=== PATIENT | female | born 1940 | race Caucasian/White ===

== ENCOUNTER → 2016-11-01 | Outpatient (CLI) | payer OTHER ==
--- NOTE | 2016-11-01 18:10 | DX ---
Thoracic spine, three views History: Pain radiating down thoracic spine into right leg, M79.604 Findings: Alignment is anatomic. Disk spaces are well maintained. No compression fracture is identif ied. There is no paraspinal stripe widening. There is diffuse osteoporosis. Impression: 1. No compression fracture or degenerative thoracic disk disease. 2. Osteoporosis confirmed on a DEXA scan in July 2016. Is this patient undergoing therapy?
== END ==
LOC: FIMAGING 11:21
PROVIDERS: ATTEND Family Medicine
DX: M79.604 Pain in right leg (principal); M81.0 Age-related osteoporosis without current pathological fracture

== ENCOUNTER → 2016-11-06 | Outpatient (CLI) | payer OTHER | LOC: BHFA 13:30 | PROVIDERS: ATTEND Internal Medicine Cardiovascular Disease | DX: R06.02 Shortness of breath (principal) | CPT/HCPCS: 78452; 93017; A9500; J2785 ==

== ENCOUNTER → 2016-11-13 | Outpatient (CLI) | payer OTHER | LOC: BHFA 13:00 | PROVIDERS: ATTEND Internal Medicine Cardiovascular Disease | DX: I73.9 Peripheral vascular disease, unspecified (principal); I10 Essential (primary) hypertension; E78.5 Hyperlipidemia, unspecified ==

== ENCOUNTER → 2016-11-14 | Outpatient (CLI) | payer OTHER | LOC: CIMAGING 12:13 | PROVIDERS: ATTEND Family Medicine | DX: Z12.39 Encounter for other screening for malignant neoplasm of breast (principal); N63 Unspecified lump in breast | CPT/HCPCS: 76641; G0204 ==

== ENCOUNTER → 2016-11-15 | Outpatient (CLI) | payer OTHER | LOC: BHFA 13:15 | PROVIDERS: ATTEND Internal Medicine Cardiovascular Disease | DX: I10 Essential (primary) hypertension (principal) ==

== ENCOUNTER 2016-11-20 07:20 | Day surgery (SDC) | payer OTHER ==
[2016-11-20] MEDS ORDERED: FAMOTIDINE 20 MG TAB PO ONE (07:22)
[2016-11-20] MEDS ORDERED: NS 1,000 ML IV ONE (07:22)
[2016-11-20] MEDS ORDERED: DIAZEPAM 5 MG TAB PO ONE (07:22)
[2016-11-20] MEDS ORDERED: ASPIRIN EC 325 MG TAB PO ONE ×2 (07:22→07:52)
--- NOTE | 2016-11-20 07:48 | CPEKG ---
Heart Rate: 67 RR Interval: 896 P-R Interval: 140 QRSD Interval: 68 QT Interval: 396 QTC Interval: 418 P [place]: 46 QRS [place]: -8 T Wave [place]: 57 EKG Severity - ABNORMAL ECG - EKG Impression: SINUS RHYTHM EKG Impression: CONSIDER ANTEROSEPTAL INFARCT Electronically Signed By: Kavon Son 21-Nov-2016 16:56:21
[2016-11-20] MEDS ORDERED: DIAZEPAM 5 MG TAB ONE (07:52)
[2016-11-20] MEDS ORDERED: FAMOTIDINE 20 MG TAB ONE (07:52)
[2016-11-20 08:01] LABS: % IMMATURE GRANULYOCYTES 0.2 % (0.0-1.1); ABSOLUTE IMMATURE GRANULOCYTES 0.01 10^3/uL (0.00-0.10); ADD DIFF? NO; ADD MORPH? NO; ADD SCAN? NO; ATYPICAL LYMPHOCYTE FLAG 10 (0-99); FRAGMENT RBC FLAG 0 (0-99); HEMATOCRIT 42.3 % (38.0-47.0); HEMOGLOBIN 14.2 g/dL (12.6-16.3); LEFT SHIFT FLG 0 (0-99); LIPEMIA HEMOLYSIS FLAG 80 (0-99); MEAN CELL HEMOGLOBIN 30.3 pg (27.9-34.1); MEAN CELL HEMOGLOBIN CONCENTR. 33.6 g/dL (32.4-36.7); MEAN CELL VOLUME 90.2 fL (81.5-99.8); MEAN PLATELET VOLUME 10.4 fL (8.7-11.7); PLATELET CLUMPS FLAG 0 (0-99); PLATELET COUNT 209 10^3/uL (150-400); RED BLOOD CELL COUNT 4.69 10^6/uL (4.18-5.33); RED CELL DISTRIBUTION WIDTH 13.3 % (11.5-15.2)
[2016-11-20 08:16] LABS: ANION GAP 11 mEq/L (8-16); CALCIUM 9.9 mg/dL (8.5-10.4); CARBON DIOXIDE 29 mEq/l (22-31); CHLORIDE 105 mEq/L (97-110); CHOLESTEROL 186 mg/dL (140-220); CHOLESTEROL/HDL RATIO 3.72 RATIO (1.00-4.44); CREATININE 0.7 mg/dL (0.6-1.0); GLOMERULAR FILTRATION RATE > 60; GLUCOSE 76 mg/dL (70-100); HIGH DENSITY LIPOPROTEIN 50 mg/dL (40-85); LDL/HDL RATIO 2.16 RATIO (1.00-3.22); LOW DENSITY LIPOPROTEIN 108 mg/dL (80-100); NON-HIGH DENSITY LIPOPROTEIN 136 mg/dL (90-129); SODIUM 145 mEq/L (134-144); TRIGLYCERIDE 142 mg/dL (35-135); VERY LOW DENSITY LIPOPROTEINS 28 mg/dL (8-25)
[2016-11-20 08:22] LABS: INR 1.01 (0.83-1.16); PROTIME(PATIENT) 13.2 SEC (12.0-15.0)
[2016-11-20] MEDS ORDERED: IOPAMIDOL (ISOVUE-370) 150 ML BTL IV ONE ×2 (08:40→09:30)
[2016-11-20] MEDS ORDERED: LIDOCAINE 1% 30 ML SDV ONE (08:40)
[2016-11-20] MEDS ORDERED: fentaNYL 100 MCG/2 ML INJ ONE (08:41)
[2016-11-20] MEDS ORDERED: HEPARIN 10,000 UNIT/10 ML MDV ONE (08:42)
[2016-11-20] MEDS ORDERED: MIDAZOLAM 2 MG/2 ML VIAL ONE (08:42)
[2016-11-20] MEDS ORDERED: ATROPINE SULFATE 1 MG/10 ML SYR ONE (10:30)
--- NOTE | 2016-11-20 11:49 | CPIP ---
DATE OF PROCEDURE: 11/20/2016 PROCEDURES: 1. Coronary angiography. 2. Left ventriculography. 3. Abdominal aortography. 4. Right lower extremity angiography with catheter placed in the ipsilateral right common iliac art maninder. 5. Left lower extremity angiography with catheter placed in the contralateral left superficial femo ral artery. INDICATION: 1. Dyspnea on exertion concerning for an anginal equivalent. 2. Intermediate risk abnormal nuclear stress test. 3. Classic left lower extremity claudication with abnormal YOLANDA of 0.37. 4. Atypical right lower extremity pain that is currently lifestyle limiting. ACCESS: The patient was prepped and draped in sterile fashion. 1% lidocaine was used to anesthetiz e the right inguinal region. A 6-Indonesian introducer sheath was placed selectively into the right com mon femoral artery via modified Seldinger technique. CORONARY ANGIOGRAPHY: A 6-Indonesian JL4 was advanced to the left main coronary artery and images obtai jamin. The left main coronary artery trifurcated into an LAD, ramus, and circumflex coronary arteries . The left main coronary artery was long. The left main coronary artery had mild luminal regularit ies throughout. There was no stenosis greater than 10%. The left anterior descending coronary ruperto ry had a proximal 20% stenosis present. In the midvessel, a myocardial bridge could be seen. In th e distal vessel, mild luminal irregularities were present with no stenosis greater than 15%. The le ft anterior descending coronary artery gave rise to one diagonal branch. The diagonal branch was fr ee of any significant disease. The ramus coronary artery is a zchdhuec-or-wmfyg size vessel. The r amus coronary artery had a mid 20% stenosis present. The circumflex coronary artery is a moderate-s ized vessel. The circumflex coronary artery and its complement of OM branches appeared normal. A 6 -Indonesian JR4 was advanced to the right coronary artery and images obtained. The right coronary arter y is dominant. The right coronary artery appeared normal. LEFT VENTRICULOGRAPHY: A 6-Indonesian pigtail catheter was advanced in the left ventricle and images ob tained. The left ventricle is normal size, had normal systolic function. Estimated ejection fracti on was 70%. Left ventricular end-diastolic pressure was approximately 20 mmHg. ABDOMINAL AORTOGRAPHY: A 6-Indonesian pigtail catheter was placed in the abdominal aorta and position v erified by angiography. Images were obtained via power injection through the [employer] system. The ri ght renal artery was not well visualized. The left renal artery was not well visualized. The dista l abdominal aorta had mild luminal irregularities throughout with no stenosis greater than 15%. The re was no evidence of aneurysmal dilation. The distal abdominal aorta then bifurcated into the righ t and left common iliac arteries. LEFT LOWER EXTREMITY ANGIOGRAPHY VIA CONTRALATERAL APPROACH WITH CATHETER PLACED IN THE LEFT SUPERFI CIAL FEMORAL ARTERY: A SOS Omni catheter was placed in the distal abdominal aorta and position veri fied by angiography. The SOS Omni catheter was used to engage the left common iliac artery and image s obtained. The left common iliac artery bifurcated into an internal iliac artery and external clint c artery. The left common iliac artery appeared normal. The left internal iliac artery had an osti al 20% stenosis present. The left external iliac artery appeared free of any significant disease. T he SOS Omni was then exchanged for a straight flush catheter which was advanced which was advanced i nto the left external iliac artery. The left external iliac artery turned into the left common femo ral artery. The left external iliac artery appeared normal. The left common femoral artery had mil d luminal irregularities throughout. The straight flush catheter was then advanced into the left hoover perficial femoral artery and position verified by angiography. Images were obtained via hand inject ion. The left superficial femoral artery was diffusely diseased. In the proximal segment, there wa s a segmental 20% stenosis present. In the mid-segment, there is a 25% stenosis present, and in the distal segment there is a discrete 95% stenosis present prior to turning into the popliteal artery. The popliteal artery appeared free of any significant disease. Below the knee, there was 2 vessel runoff. RIGHT LOWER EXTREMITY ANGIOGRAPHY VIA IPSILATERAL APPROACH WITH CATHETER PLACED IN THE RIGHT COMMON ILIAC ARTERY: A straight flush catheter was advanced to the right common iliac artery and position verified by angiography. Images were obtained via hand injection. The right common iliac artery bi furcated into an internal iliac artery and external iliac artery. The right common iliac artery samuel eared normal. The right external iliac artery appeared normal. The right internal iliac artery had mild luminal regularities throughout. The remainder of the images were obtained via hand injection through the 6-Indonesian introducer sheath in the right common femoral artery. The right common femora l artery had a discrete 25% stenosis present before bifurcating into the right superficial femoral a rtery and profunda femoral artery. The right profunda femoral artery was free of any significant di sease. The right superficial femoral artery had sequential 20% stenosis in the proximal segment, a cqf-oc-jxsocp 50-60% stenosis present, and prior to turning into the popliteal artery, the popliteal artery was free of any significant disease. Below the knee, there was 3-vessel runoff. COMPLICATIONS: None. CONCLUSIONS: 1. Mild coronary artery disease without flow limitation. 2. Normal left ventricular size and systolic function. 3. 95% left superficial femoral artery stenosis. 4. Laaf-co-ympsprxm peripheral vascular disease of the right lower extremity without flow limitatio n. 5. The plan will be to bring patient back for balloon angioplasty of the left superficial femoral a rtery once her right lower extremity pain has been resolved. /[id number]/MODL
== END 2016-11-20 16:29 | disposition home or self-care (01) ==
LOC: FCATH 07:20
PROVIDERS: ATTEND Internal Medicine Cardiovascular Disease
PROC: B41F1ZZ Fluoroscopy of Right Lower Extremity Arteries using Low Osmolar Contrast (ICD-10-PCS; principal; 2016-11-20)
PROC: B4101ZZ Fluoroscopy of Abdominal Aorta using Low Osmolar Contrast (ICD-10-PCS; principal; 2016-11-20)
PROC: B2151ZZ Fluoroscopy of Left Heart using Low Osmolar Contrast (ICD-10-PCS; principal; 2016-11-20)
PROC: B2111ZZ Fluoroscopy of Multiple Coronary Arteries using Low Osmolar Contrast (ICD-10-PCS; principal; 2016-11-20)
PROC: 4A023N7 Measurement of Cardiac Sampling and Pressure, Left Heart, Percutaneous Approach (ICD-10-PCS; principal; 2016-11-20)
PROC: B41G1ZZ Fluoroscopy of Left Lower Extremity Arteries using Low Osmolar Contrast (ICD-10-PCS; principal; 2016-11-20)
DX: I73.9 Peripheral vascular disease, unspecified (principal); I25.10 Atherosclerotic heart disease of native coronary artery without angina pectoris; R06.00 Dyspnea, unspecified; I10 Essential (primary) hypertension; E78.5 Hyperlipidemia, unspecified
CPT/HCPCS: 75625; 75716; 93005; 93458; C1769; J0461; J1644; J2250; J3010; Q9967

== ENCOUNTER → 2016-11-24 | Outpatient (CLI) | payer OTHER | LOC: FIMAGING 09:33 | PROVIDERS: ATTEND Family Medicine | DX: Z09 Encounter for follow-up examination after completed treatment for conditions other than malignant neoplasm (principal); M51.36 Other intervertebral disc degeneration, lumbar region; Z98.890 Other specified postprocedural states ==

== ENCOUNTER → 2016-12-11 | Outpatient (CLI) | payer OTHER | LOC: FIMAGING 07:34 | PROVIDERS: ATTEND Physical Medicine & Rehabilitation | DX: R16.0 Hepatomegaly, not elsewhere classified (principal); N28.89 Other specified disorders of kidney and ureter; M48.06 Spinal stenosis, lumbar region; M51.26 Other intervertebral disc displacement, lumbar region; M51.86 Other intervertebral disc disorders, lumbar region; M46.96 Unspecified inflammatory spondylopathy, lumbar region ==

== ENCOUNTER → 2016-12-18 | Outpatient (CLI) | payer OTHER | LOC: CIMAGING 08:20 | PROVIDERS: ATTEND Physical Medicine & Rehabilitation | DX: R93.41 Abnormal radiologic findings on diagnostic imaging of renal pelvis, ureter, or bladder (principal); R16.0 Hepatomegaly, not elsewhere classified | CPT/HCPCS: 76700-PO ==

== ENCOUNTER → 2016-12-22 | Outpatient (CLI) | payer OTHER ==
[~2016-12-22] MED LIST: IOPAMIDOL (ISOVUE-300) 100 ML BTL IV ONE
== END ==
LOC: FIMAGING 12:26
PROVIDERS: ATTEND Family Medicine
DX: N28.1 Cyst of kidney, acquired (principal)
CPT/HCPCS: 74170; Q9967

== ENCOUNTER 2017-03-12 06:14 | Observation (INO) | payer OTHER ==
[2017-03-12] MEDS ORDERED: ASPIRIN EC 325 MG TAB PO ONE ×2 (06:20→06:52)
[2017-03-12] MEDS ORDERED: NS 1,000 ML IV ONE (06:20)
[2017-03-12] MEDS ORDERED: DIAZEPAM 5 MG TAB PO ONE (06:20)
[2017-03-12] MEDS ORDERED: FAMOTIDINE 20 MG TAB PO ONE (06:20)
--- NOTE | 2017-03-12 06:44 | CPEKG ---
Heart Rate: 66 RR Interval: 909 P-R Interval: 160 QRSD Interval: 72 QT Interval: 420 QTC Interval: 441 P Cosby: 73 QRS Cosby: 14 T Wave Cosby: 66 EKG Severity - NORMAL ECG - EKG Impression: SINUS RHYTHM Electronically Signed By: Brent Alejandra 12-Mar-2017 09:04:56
[2017-03-12] MEDS ORDERED: FAMOTIDINE 20 MG TAB ONE (06:52)
[2017-03-12] MEDS ORDERED: DIAZEPAM 5 MG TAB ONE (06:52)
[2017-03-12 07:01] LABS: % IMMATURE GRANULYOCYTES 0.3 % (0.0-1.1); ABSOLUTE IMMATURE GRANULOCYTES 0.02 10^3/uL (0.00-0.10); ADD DIFF? NO; ADD MORPH? NO; ADD SCAN? NO; ATYPICAL LYMPHOCYTE FLAG 20 (0-99); FRAGMENT RBC FLAG 0 (0-99); HEMATOCRIT 43.2 % (38.0-47.0); HEMOGLOBIN 14.5 g/dL (12.6-16.3); LEFT SHIFT FLG 0 (0-99); LIPEMIA HEMOLYSIS FLAG 80 (0-99); MEAN CELL HEMOGLOBIN CONCENTR. 33.6 g/dL (32.4-36.7); MEAN CELL VOLUME 92.5 fL (81.5-99.8); MEAN PLATELET VOLUME 10.7 fL (8.7-11.7); PLATELET CLUMPS FLAG 0 (0-99); PLATELET COUNT 201 10^3/uL (150-400); RED BLOOD CELL COUNT 4.67 10^6/uL (4.18-5.33); RED CELL DISTRIBUTION WIDTH 13.4 % (11.5-15.2)
[2017-03-12 07:12] LABS: PROTIME(PATIENT) 13.1 SEC (12.0-15.0)
[2017-03-12 07:20] LABS: ANION GAP 12 mEq/L (8-16); CALCIUM 9.7 mg/dL (8.5-10.4); CARBON DIOXIDE 27 mEq/l (22-31); CHLORIDE 103 mEq/L (97-110); CHOLESTEROL 157 mg/dL (140-220); CREATININE 0.7 mg/dL (0.6-1.0); GLOMERULAR FILTRATION RATE > 60; GLUCOSE 74 mg/dL (70-100); HIGH DENSITY LIPOPROTEIN 49 mg/dL (40-85); LDL/HDL RATIO 1.49 RATIO (1.00-3.22); LOW DENSITY LIPOPROTEIN 73 mg/dL (80-100); MAGNESIUM 1.9 mg/dL (1.6-2.3); NON-HIGH DENSITY LIPOPROTEIN 108 mg/dL (90-129); POTASSIUM 3.4 mEq/L (3.5-5.2); SODIUM 142 mEq/L (134-144); TRIGLYCERIDE 176 mg/dL (35-135); VERY LOW DENSITY LIPOPROTEINS 35 mg/dL (8-25)
[2017-03-12] MEDS ORDERED: MIDAZOLAM 2 MG/2 ML VIAL ONE (07:50)
[2017-03-12] MEDS ORDERED: fentaNYL 100 MCG/2 ML INJ ONE (07:50)
[2017-03-12] MEDS ORDERED: LIDOCAINE 1% 300 MG/30 ML SDV ONE (07:50)
[2017-03-12] MEDS ORDERED: BIVALIRUDIN 250 MG/5 ML VIAL IV ONE (07:55)
[2017-03-12] MEDS ORDERED: HEPARIN 10,000 UNIT/10 ML MDV ONE (07:55)
[2017-03-12] MEDS ORDERED: IOPAMIDOL (ISOVUE-300) 200 ML BTL ONE (08:48)
[2017-03-12] MEDS ORDERED: CLOPIDOGREL BISULFATE 75 MG TAB PO ONE (10:24)
[2017-03-12] MEDS ORDERED: LORazepam 2 MG/ML INJ IVP PRN (10:24)
[2017-03-12] MEDS ORDERED: ATROPINE SULFATE 1 MG/10 ML SYR IVP PRN (10:24)
[2017-03-12] MEDS ORDERED: TEMAZEPAM 15 MG CAP PO PRN (10:24)
[2017-03-12] MEDS ORDERED: ONDANSETRON 4 MG/2 ML VIAL IVP PRN (10:24)
[2017-03-12] MEDS ORDERED: NITROGLYCERIN 0.4 MG BTL SL PRN (10:24)
[2017-03-12] MEDS ORDERED: CETIRIZINE 10 MG TAB PO PRN (10:26)
[2017-03-12] MEDS ORDERED: DOCUSATE SODIUM 100 MG CAP PO PRN (10:26)
--- NOTE | 2017-03-12 10:58 | CPIP ---
[f rep st] INVASIVE CARDIAC PROCEDURE DATE OF PROCEDURE: 03/12/2017 PROCEDURES: 1. Abdominal aortography. 2. Left lower extremity angiography via contralateral approach with catheter placed in the left sup erficial femoral artery. 3. Right lower extremity angiography via ipsilateral approach with catheter placed in the right com mon femoral artery. 4. Angioplasty and drug-coated balloon angioplasty of the left SFA via contralateral approach. INDICATION: 1. Claudication. 2. Abnormal YOLANDA consistent with critical limb ischemia. ACCESS: Patient was prepped and draped in sterile fashion. 1% lidocaine was used to anesthetize th e right inguinal region. A 6-Omani introducer sheath was placed selectively into the right common femoral artery via modified Seldinger technique. The 6-Omani introducer sheath was later exchanged for a 6-Omani Sarah Ann Destination sheath via exchange wire technique. ABDOMINAL AORTOGRAPHY: A 6-Omani pigtail catheter was advanced into the distal abdominal aorta and position verified by angiography. Images were obtained via power injection through the [employer]. There was a single right renal artery as well as a single left renal artery. The left renal ar refugio appeared free of any significant disease. The right renal artery was not well visualized. Bel ow the renal arteries there was mild disease burden present in the distal abdominal aorta. There wa s no stenosis greater than 10% to 20%. The distal abdominal aorta then bifurcated into the right an d left common iliac arteries. Left lower extremity angiography via contralateral approach with cath eter placed in the left superficial femoral artery. A 5-Omani SOS Omni catheter was placed in the distal abdominal aorta and reformed into its usual position. The SOS Omni was used to selectively e ngage the left common iliac artery. Images were obtained via hand injection through the SOS Omni ca theter. The left common iliac artery had a proximal 10% stenosis present. It then bifurcated into the internal and external iliac arteries. The left internal iliac artery: The ostium appeared free of any significant disease. The left external iliac artery had mild plaque burden present. No kimberly nosis greater than 10%. An angled Glidewire was then placed into the superficial femoral artery and a straight flush catheter was advanced into the external iliac artery and images were obtained. Th e left external iliac artery then turned into the left common femoral artery which then bifurcated i nto the left superficial femoral artery and profunda femoral artery. The left common femoral artery appeared free of any significant disease. The left profunda femoral artery appeared free of any si gnificant disease. The left superficial femoral artery was diffusely diseased. In the proximal seg ment, there was sequential 40% to 50% stenosis present. In the mid segment, mild diffuse disease ca n be seen with stenosis approaching 20% to 30%. In the distal segment, there is a single discrete 9 5% stenosis present. The angled Glidewire was then advanced into the left superficial femoral arter y and the straight flush catheter was also advanced into the left superficial femoral artery and geovanna ges obtained. The popliteal artery appeared free of any significant disease. Below the knee, there was 2 vessel runoff. RIGHT LOWER EXTREMITY ANGIOGRAPHY VIA IPSILATERAL APPROACH WITH CATHETER PLACED IN THE RIGHT COMMON FEMORAL ARTERY: The right lower extremity angiography was performed via hand injection through the 6-Omani introducer sheath. The right common femoral artery had mild disease present. There was no stenosis greater than 20%. The right common femoral artery then bifurcated into the superficial fe moral artery and profunda femoral artery. The profunda femoral artery is free of any significant di sease. The superficial femoral artery is diffusely diseased. In the proximal segment, there is seq uential 20% stenoses present. In the mid segment, there is mild diffuse disease with no stenosis gr eater than 20%. In the distal segment, there is a single discrete 75% stenosis present. The right superficial femoral artery then turned into the right popliteal artery. Below the knee, there was 2 vessel runoff. INTERVENTION OF THE LEFT SUPERFICIAL FEMORAL ARTERY: A 6-Omani Sarah Ann Destination sheath was adv anced from the right common femoral artery to the left external iliac artery and position verified b y angiography. An angled Glidewire was then placed in the distal popliteal artery and a 4.0 x 40 Ch arger balloon was advanced across the distal 95% stenosis. The balloon was inflated to nominal atmo spheres. Followup angiography demonstrated significant residual stenosis. A 5.0 x 40 Lutonix ballo on was then placed across the lesion and deployed. Followup angiography demonstrated no residual st enosis and no limitation of flow. COMPLICATIONS: None. CONCLUSIONS: 1. A 95% stenosis of the distal left superficial femoral artery. 2. Status post angioplasty and drug-coated balloon angioplasty of the left superficial femoral ruperto ry. 3. A 75% stenosis of the distal right superficial femoral artery. 4. Plan is for medical and exercise therapy. 5. Consider angioplasty of the right superficial femoral artery for symptoms of lifestyle limiting claudication or poor wound healing. /[id number]/MODL
[2017-03-12] MEDS ORDERED: ZOLPIDEM TARTRATE 5 MG TAB PO PRN (20:46)
[2017-03-12] MEDS ORDERED: ACETAMINOPHEN 325 MG TAB PO PRN (20:47)
[2017-03-12] MEDS ORDERED: GABAPENTIN 100 MG CAP PO SCH (21:00)
[2017-03-12] MEDS ORDERED: PRAVASTATIN SODIUM 10 MG TAB PO SCH (21:00)
[2017-03-13 04:53] LABS: % IMMATURE GRANULYOCYTES 0.3 % (0.0-1.1); ABSOLUTE IMMATURE GRANULOCYTES 0.02 10^3/uL (0.00-0.10); ADD DIFF? NO; ADD MORPH? NO; ADD SCAN? NO; ATYPICAL LYMPHOCYTE FLAG 0 (0-99); FRAGMENT RBC FLAG 0 (0-99); HEMATOCRIT 36.3 % (38.0-47.0); HEMOGLOBIN 11.9 g/dL (12.6-16.3); LEFT SHIFT FLG 0 (0-99); LIPEMIA HEMOLYSIS FLAG 80 (0-99); MEAN CELL HEMOGLOBIN 30.6 pg (27.9-34.1); MEAN CELL HEMOGLOBIN CONCENTR. 32.8 g/dL (32.4-36.7); MEAN CELL VOLUME 93.3 fL (81.5-99.8); MEAN PLATELET VOLUME 11.1 fL (8.7-11.7); PLATELET CLUMPS FLAG 0 (0-99); PLATELET COUNT 169 10^3/uL (150-400); RED BLOOD CELL COUNT 3.89 10^6/uL (4.18-5.33); RED CELL DISTRIBUTION WIDTH 13.7 % (11.5-15.2)
[2017-03-13 05:09] LABS: ANION GAP 7 mEq/L (8-16); CALCIUM 9.1 mg/dL (8.5-10.4); CARBON DIOXIDE 28 mEq/l (22-31); CHLORIDE 106 mEq/L (97-110); CREATININE 0.8 mg/dL (0.6-1.0); GLOMERULAR FILTRATION RATE > 60; GLUCOSE 82 mg/dL (70-100); POTASSIUM 3.8 mEq/L (3.5-5.2); SODIUM 141 mEq/L (134-144)
[2017-03-13 07:30] VITALS: BP 135/57; PULSE 77; RESP 23; TEMP 98; O2SAT 97
[2017-03-13] MEDS ORDERED: CHOLECALCIFEROL VIT D3 1,000 UNITS TAB PO SCH (09:00)
[2017-03-13] MEDS ORDERED: ASPIRIN EC 325 MG TAB PO SCH (09:00)
[2017-03-13] MEDS ORDERED: ENALAPRIL MALEATE 5 MG TAB PO SCH (09:00)
[2017-03-13] MEDS ORDERED: HYDROCHLOROTHIAZIDE 25 MG TAB PO SCH (09:00)
[2017-03-13] MEDS ORDERED: CLOPIDOGREL BISULFATE 75 MG TAB PO SCH (09:00)
[2017-03-13] MEDS ORDERED: MULTIVITAMINS 1 EACH TAB PO SCH (09:00)
--- NOTE | 2017-03-14 04:18 | GDS ---
[f rep st] DISCHARGE SUMMARY ADMIT DIAGNOSES: 1. Claudication. 2. Abnormal YOLANDA consistent with critical limb ischemia. DISCHARGE DIAGNOSIS: 1. Peripheral Vascular Disease 2. Left Femoral Drug-coated balloon angioplasty COURSE OF HOSPITALIZATION: This nice lady has experienced severe leg pain, especially of her left leg. She did have YOLANDA studies done to further evaluate, which were positive on her left leg. Her right leg causes her discomfort, which has been determined to be neuropathy or neurogenic. She was placed on Neurontin, which has been helpful for her. She was taken to the cardiac tanbark laborer by Dr. Kavon Sepulveda where he extensively evaluated bilateral legs with angiography. He did find a significant blockage of the left lower leg finding a 95% lesion in the distal left superficial femoral artery. She did have a 75% stenosis in the distal right superficial femoral artery, which did not meet criteria for intervention. He did angioplasty with drug-coated balloon angioplasty of the left superficial femoral artery. There were no complications , and she was taken to PCU for overnight observation where she has done well. She had no groin site bleeding. She has been up in the room and has not had any leg cramping of the right or the left leg. She does notice a significant difference in her left leg with much less discomfort. At this time, she currently is stable for discharge. DISCHARGE MEDICATIONS: She will go home on Plavix 75 mg daily; Zyrtec 10 mg daily as needed; multivitamin daily; hydrochlorothiazide 25 mg daily; Vasotec 5 mg daily; herbal supplements 1 daily; Ambien 5-10 mg at bedtime as needed; Neurontin 300 mg at bedtime; Colace 100 mg at bedtime as needed; pravastatin 10 mg at bedtime; vitamin D3, 5000 units daily; Tylenol 325 mg 1-2 tablets every 6 hours as needed for pain not to exceed 3 g daily; enteric-coated aspirin 325 mg daily. . ALLERGIES: She has allergies to oxycodone. PHYSICAL EXAMINATION: VITAL SIGNS: On day of discharge, blood pressure 135/57 , heart rate 77 and regular, oxygen saturation 97%, temperature 36.7. HEART: EKG shows normal sinus rhythm with no arrhythmias. Heart rate regular. No murmurs, rubs, or gallops. LUNGS: Sounds are clear to auscultation. No wheezes, rales, or rhonchi. GROIN: Right groin site is intact with no bleeding , induration, or pain. There is no ecchymosis or hematoma at the site. EXTREMITIES: She has no leg pain or numbness on exam. Peripheral pulses are 2 + bilaterally. REPORT OF PROCEDURE: Done 03/12/2017 performing abdominal aortography, right lower extremity angiography via ipsilateral approach with catheter placed in the right common femoral artery, intervention of the left superficial femoral artery finding a distal 95% stenosis. Angiography demonstrated significant residual stenosis. A Lutonix balloon was placed across the lesion and deployed placing a drug-coated balloon of the left superficial femoral artery. There were no complications and no residual stenosis or limitation of flow was demonstrated in followup. COMPLICATIONS: None. CONCLUSIONS: 1. A 95% stenosis of the distal left superficial femoral artery. 2. Status post angioplasty and drug-coated balloon angioplasty of the left superficial femoral artery. 3. 75% stenosis of the distal right superficial femoral artery. 4. Plan for medical and exercise therapy with cardiac peripheral vascular rehab. 5. Consider angioplasty of the right superficial femoral artery if symptoms of lifestyle-limiting claudication or poor wound healing present. DISCHARGE PLAN: 1. Groin site precautions were reviewed with her verbally and written. She understands no heavy lifting, pushing, pulling greater than 10 pounds for 7 days. No sitting in a tub of water for 10 days. 2. Okay to walk a short distance gently. 3. Okay to use stairs. 4. Plan for cardiac/peripheral vascular rehab therapy. 5. Consideration for right superficial femoral artery angioplasty should she become symptomatic. 6. She will follow up with Dr. Sepulveda in 7-10 days. 7. She was advised not to use ibuprofen products or Motrin for pain due to the increased bleeding potential. 8. Plavix and its importance was reviewed with her. She understands she needs to take it daily without fail over the next 1 year, along with aspirin. 9. At this time, she currently is stable for discharge. /[id number]/MODL MTDD
== END 2017-03-13 12:31 | disposition hospice, home (50) ==
LOC: FCATH 06:14 → F2W 10:21
PROVIDERS: ADMIT Internal Medicine Cardiovascular Disease; ATTEND Internal Medicine Cardiovascular Disease
PROC: 04HL33Z Insertion of Infusion Device into Left Femoral Artery, Percutaneous Approach (ICD-10-PCS; principal; 2017-03-12)
PROC: 047L3Z1 Dilation of Left Femoral Artery using Drug-Coated Balloon, Percutaneous Approach (ICD-10-PCS; principal; 2017-03-12)
PROC: 04HK33Z Insertion of Infusion Device into Right Femoral Artery, Percutaneous Approach (ICD-10-PCS; principal; 2017-03-12)
DX: I70.213 Atherosclerosis of native arteries of extremities with intermittent claudication, bilateral legs (principal); I73.9 Peripheral vascular disease, unspecified; R94.39 Abnormal result of other cardiovascular function study; G62.9 Polyneuropathy, unspecified; I25.10 Atherosclerotic heart disease of native coronary artery without angina pectoris; I11.9 Hypertensive heart disease without heart failure; F32.9 Major depressive disorder, single episode, unspecified; M81.0 Age-related osteoporosis without current pathological fracture; E78.5 Hyperlipidemia, unspecified
CPT/HCPCS: 36246; 37224; 93005; C1725; C1769; C2623; J1644; J2250; J3010; Q9967; J0461; J0583

== ENCOUNTER 2017-03-17 09:03 | Emergency (ER) | payer OTHER ==
[2017-03-17 09:14] VITALS: RESP 16
[2017-03-17 09:16] VITALS: TEMP 97.7
--- NOTE | 2017-03-17 09:23 | EDPHY ---
H & P Stated Complaint: Left leg pain. Angioplasty 5 days ago. Time Seen by Provider: 03/17/17 09:23 - Personal History Current Tetanus/Diphtheria Vaccine: Yes Current Tetanus Diphtheria and Acellular Pertussis (TDAP): Yes Tetanus Vaccine Date: < 5 yrs - Medical/Surgical History Hx Asthma: No Hx Chronic Respiratory Disease: No Hx Diabetes: No Hx Cardiac Disease: Yes Hx Renal Disease: No Hx Cirrhosis: No Hx Alcoholism: No Hx HIV/AIDS: No Hx Splenectomy or Spleen Trauma: No Other PMH: PMH: hypertension and touble sleeping. PSH: bunion surgery 1996, hysterectomy 1975 - Social History Smoking Status: Never smoked Constitutional: Initial Vital Signs Temperature (C) 36.5 C 03/17/17 09:12 Heart Rate 75 03/17/17 09:12 Respiratory Rate 16 03/17/17 09:12 Blood Pressure 146/62 H 03/17/17 09:12 O2 Sat (%) 97 03/17/17 09:12 O2 Delivery Mode Room Air Allergies/Adverse Reactions: diphenhydramine HCl [From Benadryl] Allergy (Verified 11/20/16 06:28) oxycodone Allergy (Uncoded 11/20/16 08:51) Other-Enter Comments Home Medications: Medication Instructions Recorded Cetirizine [ZyrTEC 10 mg (*)] 10 mg PO DAILY PRN 11/20/16 Enalapril Maleate [Vasotec 5 MG 5 mg PO DAILY 11/20/16 (*)] Herbals/Supplements -Info Only 1 ea PO DAILY 11/20/16 Hydrochlorothiazide [HCTZ (*)] 25 mg PO DAILY 11/20/16 Multivitamins [Multivitamin (*)] 1 each PO DAILY 11/20/16 Zolpidem Tartrate [Ambien 5MG (*)] 5 - 10 mg PO HS 11/20/16 Cholecalciferol Vit D3 [Vitamin D3 5,000 units PO DAILY 03/12/17 (*)] Docusate Sodium [Colace 100 MG (*)] 100 mg PO HS PRN 03/12/17 Gabapentin [Neurontin 100 MG (*)] 300 mg PO HS 03/12/17 Pravastatin Sodium 10 mg PO HS 03/12/17 Acetaminophen [Tylenol 325mg (*)] 650 mg PO Q6 PRN #0 tab 03/13/17 Aspirin EC [Aspirin EC 325 mg (*)] 325 mg PO DAILY #0 tab 03/13/17 Clopidogrel Bisulfate [Plavix (*)] 75 mg PO DAILY #30 tab 03/13/17 Medical Decision Making ED Course/Re-evaluation: CHIEF COMPLAINT: Left leg pain HISTORY OF PRESENT ILLNESS: The patient is a 76 y/o female arriving with her friend 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 She had an left leg angioplasty for a 95% occlusion and claudication [address] Sepulveda. Since the surgery, her left leg has regained similar perfusion to her right leg with improvement in temperature. She has been walking more since the surgery as well. She notes some increased swelling of her left leg, but denies redness or significant deviations in temperature. She denies chest pain, shortness of breath, fever, or other complaints. REVIEW OF SYSTEMS: A 10 point review of systems was performed and is negative with the exception of the elements mentioned in the history of present illness. PHYSICAL EXAM: HR, BP, O2 Sat, RR. Temp noted General Appearance: Alert, well hydrated, appropriate, and non-toxic appearing. Head: Atraumatic without scalp tenderness or obvious injury Eyes: Pupils equal, round, reactive to light and accommodation, EOMI, no trauma , no injection. Nose: Atraumatic, no rhinorrhea, clear. Throat: mucus membranes moist. Neck: Supple,nontender, no lymphadenopathy. Respiratory: No retractions, no distress, no wheezes, and no accessory muscle use. Lungs are clear to auscultation bilaterally. Cardiovascular: Regular rate and rhythm, no murmurs, rubs, or gallops. Bounding left leg dorsalis pedis and posterior tibial pulses. Good capillary refill all extremities. Equal temperature between legs. Gastrointestinal: Abdomen is soft, nontender, non-distended, no masses, no rebound, no guarding, no peritoneal signs. Musculoskeletal: Normal active ROM of all extremities, atraumatic. Neurological: Alert, appropriate, and interactive. Nonfocal neuro exam. Skin: No rashes, good turgor, no nodules on palpation. Past medical history: Peripheral vascular disease. Past surgical history: Left leg angioplasty Family history: Social history: Supervisor Speech: Dr. Sepulveda DIAGNOSTICS/PROCEDURES/CRITICAL CARE TIME: Left leg US: negative DIFFERENTIAL DIAGNOSIS: The differential diagnosis for the patient's leg swelling included but was not limited to hypoalbuminemia, congestive heart failure, cor pulmonale, venous stasis, trauma, and DVT. MEDICAL DECISION MAKING: This is a well-appearing 76 y/o female who presents with mild left leg tenderness 5 days post-angioplasty of that leg due to 95% occlusion and claudication. She has been recovering well and has had improved circulation to her leg since the surgery allowing her to walk much more. On exam, she has no temperature differential between legs, bounding dorsalis pedis and posterior tibial pulses, and no evidence of ischemia. We will perform a left leg ultrasound to rule out any type of occlusion and consult with Dr. Sepulveda. 0932: Consulted with Dr. Sepulveda in the ED. He assessed patient and agrees with my exam findings. He is comfortable discharging the patient home with outpatient follow up pending US results. US is negative. Discussed findings and plan for follow up with the patient. She is comfortable with this plan. Return precautions given. Departure - Departure Disposition: Home, Routine, Self-Care Clinical Impression: Left leg pain Condition: Good Instructions: Leg Pain (ED) Additional Instructions: Follow up with Dr. Sepulveda next week. Return for any worsening of condition. Referrals: Colette Hoffman MD [Primary Care Provider] - As per Instructions Kavon Sepulveda MD [Medical Doctor] - As per Instructions Report Scribed for: Elton Daly Report Scribed by: Linda Reyes Date of Report: 03/17/17 Time of Report: 09:36
[2017-03-17 12:52] VITALS: BP 157/73; PULSE 80; O2SAT 95
== END 2017-03-17 12:52 | disposition home or self-care (01) ==
DX: M79.605 Pain in left leg (principal); I10 Essential (primary) hypertension; Z79.82 Long term (current) use of aspirin

== ENCOUNTER → 2017-06-18 | Outpatient (CLI) | payer OTHER | LOC: BHFA 13:00 | PROVIDERS: ATTEND Internal Medicine Cardiovascular Disease | DX: I73.9 Peripheral vascular disease, unspecified (principal) ==

== ENCOUNTER 2017-07-29 16:08 | Emergency (ER) | payer OTHER ==
[2017-07-29 16:47] VITALS: TEMP 98.6; O2SAT 93
[2017-07-29 17:26] LABS: PLATELET COUNT 198 10^3/uL (150-400)
--- NOTE | 2017-07-29 18:07 | EDPHY ---
H & P Stated Complaint: tripped /fell hitting head on concrete/oozing scrapes/on blood thinner Source: Patient Exam Limitations: No limitations - Personal History Current Tetanus/Diphtheria Vaccine: Yes Tetanus Vaccine Date: < 5 yrs - Medical/Surgical History Hx Asthma: No Hx Chronic Respiratory Disease: No Hx Diabetes: No Hx Cardiac Disease: Yes Hx Renal Disease: No Hx Cirrhosis: No Hx Alcoholism: No Hx HIV/AIDS: No Hx Splenectomy or Spleen Trauma: No Other PMH: PMH: hypertension and touble sleeping. PSH: bunion surgery 1996, hysterectomy 1975 - Social History Smoking Status: Never smoked Time Seen by Provider: 07/29/17 17:02 HPI/ROS: CHIEF COMPLAINT: Mechanical fall, head injury, bilateral knee pain, mild neck pain HISTORY OF PRESENT ILLNESS: Patient presents to the ED after she sustained a mechanical fall. The patient tripped and fell forward. She landed on her head. There is a no loss of consciousness. The patient does take Plavix. She denies any numbness or weakness. She denies antecedent chest pain, palpitations or dyspnea. The patient does complain of a mild frontal headache. She did sustain a number of facial lacerations. She complains of mild neck pain. REVIEW OF SYSTEMS: A comprehensive 10 point review of systems is otherwise negative aside from elements mentioned in the history of present illness. (Robert Schulte) - Physical Exam Exam: General Appearance: Alert, no distress Head: 3 discrete superficial 1 to 1/2 cm lacerations on the forehead, 1 cm in from nasal laceration noted Eyes: Pupils equal, round, reactive ENT, Mouth: No hemotympanum, no oral trauma Neck: Mild posterior tenderness to palpation without step-off or deformity Respiratory: No chest wall tender, subcutaneous air, lungs clear bilaterally Cardiovascular: Regular rate and rhythm Abdomen: Abdomen is soft and nontender, pelvis stable Skin: Ecchymosis to bilateral knees Back: No midline T/L/S pain Extremities: Tenderness to palpation bilateral patella Neurological: A&Ox3, normal motor function, normal sensory exam (Robert Schulte) Constitutional: Initial Vital Signs Temperature (C) 37 C 07/29/17 16:43 Heart Rate 84 07/29/17 16:43 Respiratory Rate 16 07/29/17 16:43 Blood Pressure 175/90 H 07/29/17 16:43 O2 Sat (%) 93 07/29/17 16:43 O2 Delivery Mode Room Air Allergies/Adverse Reactions: diphenhydramine HCl [From Benadryl] Allergy (Verified 07/29/17 16:40) oxycodone Allergy (Uncoded 11/20/16 08:51) Other-Enter Comments Home Medications: Medication Instructions Recorded Cetirizine [ZyrTEC 10 mg (*)] 10 mg PO DAILY PRN 11/20/16 Enalapril Maleate [Vasotec 5 MG 5 mg PO DAILY 11/20/16 (*)] Herbals/Supplements -Info Only 1 ea PO DAILY 11/20/16 Hydrochlorothiazide [HCTZ (*)] 25 mg PO DAILY 11/20/16 Multivitamins [Multivitamin (*)] 1 each PO DAILY 11/20/16 Zolpidem Tartrate [Ambien 5MG (*)] 5 - 10 mg PO HS 11/20/16 Cholecalciferol Vit D3 [Vitamin D3 5,000 units PO DAILY 03/12/17 (*)] Docusate Sodium [Colace 100 MG (*)] 100 mg PO HS PRN 03/12/17 Pravastatin Sodium 10 mg PO HS 03/12/17 Acetaminophen [Tylenol 325mg (*)] 650 mg PO Q6 PRN #0 tab 03/13/17 Aspirin EC [Aspirin EC 325 mg (*)] 325 mg PO DAILY #0 tab 03/13/17 Clopidogrel Bisulfate [Plavix (*)] 75 mg PO DAILY #30 tab 03/13/17 Medical Decision Making - Diagnostics Imaging Results: Imaging Impressions Cervical Spine CT 07/29/17 17:08 Impression: 1. No significant new intracranial abnormality seen. 2. Incidental tiny meningioma along the left side of the interhemispheric fissure between the frontal lobes stable in appearance. 3. Hypodense probable lacunar infarct anterior limb of the left internal capsule with gliosis similar to the prior CT study. 4. Soft tissue contusion over the frontal bone without underlying fracture. 5. No acute abnormality seen about the cervical spine with degenerative disk disease and facet hypertrophy as detailed above. If symptoms worsen, additional imaging may be necessary. Findings discussed with Robert Schulte at 18:43 hour, 07/29/2017.. Head CT 07/29/17 17:08 Impression: 1. No significant new intracranial abnormality seen. 2. Incidental tiny meningioma along the left side of the interhemispheric fissure between the frontal lobes stable in appearance. 3. Hypodense probable lacunar infarct anterior limb of the left internal capsule with gliosis similar to the prior CT study. 4. Soft tissue contusion over the frontal bone without underlying fracture. 5. No acute abnormality seen about the cervical spine with degenerative disk disease and facet hypertrophy as detailed above. If symptoms worsen, additional imaging may be necessary. Findings discussed with Robert Schulte at 18:43 hour, 07/29/2017.. Imaging Impressions 1. Cervical Spine CT 07/29/17 17:08 Impression: 1. No significant new intracranial abnormality seen. 2. Incidental tiny meningioma along the left side of the interhemispheric fissure between the frontal lobes stable in appearance. 3. Hypodense probable lacunar infarct anterior limb of the left internal capsule with gliosis similar to the prior CT study. 4. Soft tissue contusion over the frontal bone without underlying fracture. 5. No acute abnormality seen about the cervical spine with degenerative disk disease and facet hypertrophy as detailed above. If symptoms worsen, additional imaging may be necessary. Findings discussed with Robert Schulte at 18:43 hour, 07/29/2017.. 2. Head CT 07/29/17 17:08 Impression: 1. No significant new intracranial abnormality seen. 2. Incidental tiny meningioma along the left side of the interhemispheric fissure between the frontal lobes stable in appearance. 3. Hypodense probable lacunar infarct anterior limb of the left internal capsule with gliosis similar to the prior CT study. 4. Soft tissue contusion over the frontal bone without underlying fracture. 5. No acute abnormality seen about the cervical spine with degenerative disk disease and facet hypertrophy as detailed above. If symptoms worsen, additional imaging may be necessary. Findings discussed with Robert Schulte at 18:43 hour, 07/29/2017.. 3. Left knee x-ray: Images reviewed by myself Dr. Robert Schulte, CLARKE noted, no acute fracture appreciated 4. Right knee x-ray: Images reviewed by myself Dr. Robert Schulte, transverse right patella fracture present. (Robert Schulte) Procedures: Procedure: Laceration repair. Verbal consent was obtained from the patient. The 2-1 cm linear laceration on forehead and 1 cm k-shaped complex laceration on forehead was anesthetized in the usual fashion. The wound was irrigated, draped and explored to its base with a gloved finger. There were no deep structures involved. No tendon injury was identified. The wound was repaired with #9, 6-0 nonabsorbable sutures. Steri-Strips were placed. Good hemostasis was achieved and patient tolerated procedure well. The procedure was performed by myself. (Radha Dawson) ED Course/Re-evaluation: The patient presents to the ED after mechanical fall. She is noted to have facial abrasions and a laceration. She was taken for a CT scan of her head given the fact she uses Plavix, has headache and based upon her age. CT scan demonstrates no evidence of an acute fracture or intracranial hemorrhage. The patient had a CT scan of the neck which also demonstrates no evidence of an acute fracture. The patient does have bilateral knee tenderness and swelling. Bilateral knee x- rays are obtained. The patient is noted to have a nondisplaced right patella fracture. The patient has been placed in a knee immobilizer. She will be advised in her wound care. The patient's laceration was repaired by the physician assistant customer service manager Radha Dawson under my supervision. The patient will be referred to our on-call orthopedic surgeon for further evaluation of her right patella fracture. The patient is advised to use Tylenol as needed for pain. Suture removal in 5 days. I re-evaluated the patient at 7:30 p.m.. She continues to be neurologically intact. She has a benign abdominal exam. (Robert Schulte) Differential Diagnosis: Differential diagnosis considered includes intracranial hemorrhage, cervical spine fracture, knee fracture, spinal cord injury, skull fracture, facial laceration (Robert Schulte) - Data Points Laboratory Results: Laboratory Results 07/29/17 17:16 07/29/17 17:16 07/29/17 07/29/17 17:16 17:16 WBC 9.00 10^3/uL 10^3/uL (3.80-9.50) RBC 4.66 10^6/uL 10^6/uL (4.18-5.33) Hgb 14.7 g/dL g/dL (12.6-16.3) Hct 42.3 % % (38.0-47.0) MCV 90.8 fL fL (81.5-99.8) MCH 31.5 pg pg (27.9-34.1) MCHC 34.8 g/dL g/dL (32.4-36.7) RDW 14.6 % % (11.5-15.2) Plt Count 198 10^3/uL 10^3/uL (150-400) MPV 10.2 fL fL (8.7-11.7) Neut % (Auto) 66.9 % % (39.3-74.2) Lymph % (Auto) 23.6 % % (15.0-45.0) Parmer % (Auto) 6.6 % % (4.5-13.0) Eos % (Auto) 1.9 % % (0.6-7.6) Baso % (Auto) 0.6 % % (0.3-1.7) Nucleat RBC Rel Count 0.0 % % (0.0-0.2) Absolute Neuts (auto) 6.03 10^3/uL 10^3/uL (1.70-6.50) Absolute Lymphs (auto) 2.12 10^3/uL 10^3/uL (1.00-3.00) Absolute Monos (auto) 0.59 10^3/uL 10^3/uL (0.30-0.80) Absolute Eos (auto) 0.17 10^3/uL 10^3/uL (0.03-0.40) Absolute Basos (auto) 0.05 10^3/uL 10^3/uL (0.02-0.10) Absolute Nucleated RBC 0.00 10^3/uL 10^3/uL (0-0.01) Immature Gran % 0.4 % % (0.0-1.1) Immature Gran # 0.04 10^3/uL 10^3/uL (0.00-0.10) Sodium 141 mEq/L mEq/L (134-144) Potassium 3.6 mEq/L mEq/L (3.5-5.2) Chloride 101 mEq/L mEq/L (97-110) Carbon Dioxide 25 mEq/l mEq/l (22-31) Anion Gap 15 mEq/L mEq/L (8-16) BUN 20 mg/dL mg/dL (7-23) Creatinine 0.7 mg/dL mg/dL (0.6-1.0) Estimated GFR > 60 Glucose 92 mg/dL mg/dL (70-100) Calcium 10.1 mg/dL mg/dL (8.5-10.4) Departure - Departure Disposition: Home, Routine, Self-Care Clinical Impression: Scalp contusion Qualifiers: Encounter type: initial encounter Qualified Code(s): S00.03XA - Contusion of scalp, initial encounter Patella fracture Qualifiers: Encounter type: initial encounter Fracture type: closed Fracture morphology: transverse Fracture alignment: nondisplaced Laterality: right Qualified Code(s) : S82.034A - Nondisplaced transverse fracture of right patella, initial encounter for closed fracture Condition: Good Instructions: Laceration (ED), Patellar Fracture (ED) Additional Instructions: 1. Please wear knee immobilizer until seen by orthopedic surgeon. You may weightbear as tolerated on your right leg. 2. Return to the ED in 5 days for suture removal. Apply antibiotic ointment twice daily to abrasions and lacerations. 3. Tylenol and ibuprofen as needed for pain. 4. Return to the ED for severe headache, numbness, weakness, new pain or other concerns. Referrals: Brant Blackwell MD [Unknown] - As per Instructions
--- NOTE | 2017-07-29 18:52 | EDPHY ---
ED Progress Note Narrative: Procedure: Laceration repair. Verbal consent was obtained from the patient. The 2-1 cm linear laceration on forehead and 1 cm k-shaped complex laceration on forehead was anesthetized in the usual fashion. The wound was irrigated, draped and explored to its base with a gloved finger. There were no deep structures involved. No tendon injury was identified. The wound was repaired with #9, 6-0 nonabsorbable sutures. Steri-Strips were placed. Good hemostasis was achieved and patient tolerated procedure well. The procedure was performed by myself.
[2017-07-29 20:44] VITALS: BP 167/76; PULSE 70; RESP 18
== END 2017-07-29 20:43 | disposition home or self-care (01) ==
PROC: 0HQ1XZZ Repair Face Skin, External Approach (ICD-10-PCS; principal; 2017-07-29)
DX: S82.034A Nondisplaced transverse fracture of right patella, initial encounter for closed fracture (principal); I10 Essential (primary) hypertension; S01.81XA Laceration without foreign body of other part of head, initial encounter; Z79.82 Long term (current) use of aspirin; W01.0XXA Fall on same level from slipping, tripping and stumbling without subsequent striking against object, initial encounter
CPT/HCPCS: 12013; 70450; 72125; 73564; 99285; L1830

== ENCOUNTER → 2017-11-28 | Outpatient (CLI) | payer OTHER | LOC: CIMAGING 10:19 | PROVIDERS: ATTEND Physician Assistant | DX: M24.9 Joint derangement, unspecified (principal); M85.661 Other cyst of bone, right lower leg; M25.751 Osteophyte, right hip | CPT/HCPCS: 73700-PO ==

== ENCOUNTER → 2017-12-10 | Outpatient (CLI) | payer OTHER ==
[~2017-12-10] MED LIST changes: +GADOBUTROL 10 ML VIAL IVP ONE; -IOPAMIDOL (ISOVUE-300) 100 ML BTL IV ONE
== END ==
LOC: FIMAGING 11:09
PROVIDERS: ATTEND Ophthalmology Pediatric Ophthalmology and Strabismus Specialist
DX: G31.9 Degenerative disease of nervous system, unspecified (principal); G93.9 Disorder of brain, unspecified; Z98.890 Other specified postprocedural states
CPT/HCPCS: 70543; 70553; A9585

== ENCOUNTER 2018-01-15 05:49 | Inpatient (IN) | payer OTHER ==
[2018-01-15] MEDS ORDERED: BUPI/epINEPH/KETOROLAC IU ONE (06:00)
[2018-01-15] MEDS ORDERED: NS IV ONE (06:00)
[2018-01-15] MEDS ORDERED: POVIDONE-IODINE 20 ML in SODIUM CL IRRIG SOLUTION 500 ML IRR ONE (06:00)
[2018-01-15] MEDS ORDERED: ROPIVACAINE 0.2% 80 MG, EPINEPHrine 0.2 MG, KETOROLAC TROMETHAMINE 30 MG in SYRINGE 0 ML IU ONE (06:00)
[2018-01-15] MEDS ORDERED: TRANEXAMIC ACID IV ONE (06:00)
[2018-01-15] MEDS ORDERED: FAMOTIDINE 20 MG TAB PO ONE (06:13)
[2018-01-15] MEDS ORDERED: ceFAZolin 2 GM/SWFI 2 GM/20 ML SYR IVP ONE (06:13)
[2018-01-15] MEDS ORDERED: ACETAMINOPHEN 325 MG TAB PO ONE (06:13)
[2018-01-15] MEDS ORDERED: DEXAMETHASONE 4 MG/ML VIAL IVP ONE (06:13)
[2018-01-15] MEDS ORDERED: GABAPENTIN 300 MG CAP PO ONE (06:13)
[2018-01-15] MEDS ORDERED: LR 1,000 ML IV ONE (06:15)
[2018-01-15] MEDS ORDERED: LIDOCAINE 1% 2 ML INJ ID PRN (06:15)
[2018-01-15] MEDS ORDERED: ceFAZolin 1 GM/5 ML SYR ONE (06:32)
--- NOTE | 2018-01-15 06:58 | PDANEPAE ---
ANE History of Present Illness right ADAM ANE Past Medical History - Cardiovascular History Hx Hypertension: Yes Hx Arrhythmias: No Hx Chest Pain: No Hx Coronary Artery / Peripheral Vascular Disease: Yes Hx CHF / Valvular Disease: Yes Hx Palpitations: No Cardiovascular History Comment: PVD, PAD, Aortic insufficiency - Pulmonary History Hx COPD: No Hx Asthma/Reactive Airway Disease: No Hx Recent Upper Respiratory Infection: No Hx Oxygen in Use at Home: No Hx Sleep Apnea: No Sleep Apnea Screening Result - Last Documented: Negative Pulmonary History Comment: cough r/t sinus drainage - Neurologic History Hx Cerebrovascular Accident: No Hx Seizures: No Hx Dementia: No - Endocrine History Hx Diabetes: No - Renal History Hx Renal Disorders: No - Liver History Hx Hepatic Disorders: No - Neurological & Psychiatric Hx Hx Neurological and Psychiatric Disorders: Yes Neurological / Psychiatric History Comment: anxiety,depression - Cancer History Hx Cancer: Yes Cancer History Comment: skin CA - Congenital Disorder History Hx Congenital Disorders: No - GI History Hx Gastrointestinal Disorders: No - Other Health History Other Health History: sees traffic control flagger regularly. bruises easily - Chronic Pain History Chronic Pain: Yes (bilat shoulders,neck,lower back) - Surgical History Prior Surgeries: left leg angioplasty ANE Review of Systems Review of Systems: - Exercise capacity METS (RN): 3 METS ANE Patient History - Allergies Allergies/Adverse Reactions: diphenhydramine HCl [From Benadryl] Allergy (Verified 12/25/17 10:55) Other-Enter Comments oxycodone Allergy (Verified 12/25/17 10:55) Other-Enter Comments - Home Medications Home medications: home medication list seen and reviewed Home Medications: Cetirizine [ZyrTEC 10 mg (*)] 10 mg PO DAILY PRN 11/20/16 [Last Taken 2 Days Ago ~01/13/18] Enalapril Maleate [Vasotec 5 MG (*)] 5 mg PO DAILY 11/20/16 [Last Taken 1 Day Ago ~01/14/18] Herbals/Supplements -Info Only 1 ea PO DAILY 11/20/16 [Last Taken 1 Week Ago ~] Hydrochlorothiazide [HCTZ (*)] 25 mg PO DAILY 11/20/16 [Last Taken 1 Day Ago ~] Multivitamins [Multivitamin (*)] 1 each PO DAILY 11/20/16 [Last Taken 1 Week Ago ~01/08/18] Zolpidem Tartrate [Ambien 5MG (*)] 5 - 10 mg PO HS 11/20/16 [Last Taken 1 Day Ago ~01/14/18] Cholecalciferol Vit D3 [Vitamin D3 (*)] 5,000 units PO DAILY 03/12/17 [Last Taken 1 Week Ago ~01/08/18] Docusate Sodium [Colace 100 MG (*)] 100 mg PO HS PRN 03/12/17 [Last Taken Unknown] Pravastatin Sodium 10 mg PO HS 03/12/17 [Last Taken 1 Day Ago ~01/14/18] Aspirin [Aspirin 81mg (*)] 81 mg PO DAILY 12/25/17 [Last Taken 2 Weeks Ago ~07/11] Naproxen Sodium [Aleve 220 MG (*)] 220 mg PO BID PRN 12/25/17 [Last Taken 2 Weeks Ago ~01/01/18] Sertraline HCl [Zoloft 100mg (*)] 100 mg PO DAILY 12/25/17 [Last Taken 1 Day Ago ~01/14/18] Sertraline HCl [Zoloft 25mg (*)] 25 mg PO DAILY 12/25/17 [Last Taken Unknown] guaiFENesin [Mucinex 600 MG (*)] 600 mg PO DAILY 12/25/17 [Last Taken 1 Day Ago ~01/14/18] - NPO status NPO Since - Liquids (Date): 01/14/18 NPO Since - Liquids (Time): 22:00 NPO Since - Solids (Date): 01/14/18 NPO Since - Solids (Time): 19:30 - Anes Hx Anes Hx: no prior problems - Smoking Hx Smoking Status: Never smoked - Alcohol Use Alcohol Use: None - Family Anes Hx Family Hx Anesthesia Complications: none ANE Labs/Vital Signs - Vital Signs Blood Pressure: 147/70 Heart Rate: 71 Respiratory Rate: 18 O2 Sat (%): 96 Height: 165.1 cm Weight: 52.617 kg ANE Physical Exam - Airway Neck exam: FROM Mallampati Score: Class 2 Mouth exam: normal dental/mouth exam - Pulmonary Pulmonary: no respiratory distress - Cardiovascular Cardiovascular: regular rate and rhythym - ASA Status ASA Status: III ANE Anesthesia Plan Anesthesia Plan: spinal
--- NOTE | 2018-01-15 07:06 | PDHPUP ---
History & Physical Update H&P update statement: This history and physical update is based on an assessment of the patient which was completed after admission or registration (within 24 hours), but prior to the surgery/procedure. H&P update: H&P reviewed & patient examined
[2018-01-15] MEDS ORDERED: LIDOCAINE 2% 5 ML SDV ONE (07:07)
[2018-01-15] MEDS ORDERED: PROPOFOL 200 MG/20 ML VIAL ONE ×2 (07:08)
--- NOTE | 2018-01-15 08:02 | POSTANESTH ---
Post Anesthetic Evaluation Cardiovascular Status: Normal, Stable Respiratory Status: Normal, Stable Level of Consciousness/Mental Status: Can Participate in Eval Pain Control: Adequate, Prn Tx Ordered Nausea/Vomiting Control: Adequate, Prn Tx Ordered Complications Possibly Related to Anesthesia: None Noted
[2018-01-15] MEDS ORDERED: ALBUTEROL 3 ML DEYVIAL IH PRN (08:28)
[2018-01-15] MEDS ORDERED: NALOXONE HCL 0.4 MG/ML INJ IVP PRN (08:28)
[2018-01-15] MEDS ORDERED: LR 500 ML IV PRN (08:28)
[2018-01-15] MEDS ORDERED: PROMETHAZINE HCL 25 MG/ML INJ IVP PRN ×2 (08:28→09:03)
[2018-01-15] MEDS ORDERED: ONDANSETRON 4 MG/2 ML VIAL IVP PRN ×2 (08:28→09:03)
[2018-01-15] MEDS ORDERED: fentaNYL 100 MCG/2 ML INJ IVP PRN (08:28)
[2018-01-15] MEDS ORDERED: HYDROCODONE/APAP 5/325 TAB PO PRN ×2 (08:28→09:03)
[2018-01-15] MEDS ORDERED: HYDROmorphONE/DILAUDID 2 MG/ML INJ IVP PRN (08:28)
[2018-01-15] MEDS ORDERED: ACETAMINOPHEN 500 MG TAB PO PRN (08:28)
--- NOTE | 2018-01-15 08:43 | POSTOPPROG ---
Post Op Note Date of Operation: 01/15/18 Surgeon: Jason Birmingham Gaming Table Operator: Bahman Anesthesiologist: Austin Anesthesia: IV Sedation, Spinal Post-op Diagnosis: right hip arthritis Procedure: Right total hip arthroplasty Inf/Abcess present in the surg proc area at time of surgery?: No EBL: 100-500
[2018-01-15] MEDS ORDERED: CETIRIZINE 10 MG TAB PO PRN (08:57)
[2018-01-15] MEDS ORDERED: PROMETHAZINE HCL 25 MG SUPPR PR PRN (09:03)
[2018-01-15] MEDS ORDERED: DIPHENOXYLATE/ATROPINE LOMOTIL 1 TAB PO PRN (09:03)
[2018-01-15] MEDS ORDERED: LACTULOSE 20 GM/30 ML UDCUP PO PRN (09:03)
[2018-01-15] MEDS ORDERED: NS 500 ML IV PRN (09:03)
[2018-01-15] MEDS ORDERED: BISACODYL 10 MG SUPP PR PRN (09:03)
[2018-01-15] MEDS ORDERED: CYCLOBENZAPRINE 10 MG TAB PO PRN (09:03)
[2018-01-15] MEDS ORDERED: ONDANSETRON DISINTEGRATING 4 MG TAB PO PRN (09:03)
[2018-01-15] MEDS ORDERED: POLYETHYLENE GLYCOL 3350 17 GM PKT PO PRN (09:03)
[2018-01-15] MEDS ORDERED: MAGNESIUM HYDROXIDE 30 ML UDCUP PO PRN (09:03)
[2018-01-15] MEDS ORDERED: LR 1,000 ML IV SCH (09:30)
--- NOTE | 2018-01-15 09:38 | GOP ---
[f rep st] OPERATIVE REPORT DATE OF OPERATION: 01/15/2018 SURGEON: Jason Birmingham MD UNDERCOAT SPRAYER: Orlando Yao, PAC, and Pilo Hearn CFA. ANESTHESIA: Combination of Marcaine spinal and IV sedation. ANESTHESIOLOGIST: Jimmy Avila MD. PREOPERATIVE DIAGNOSIS: Right hip severe degenerative arthritis. POSTOPERATIVE DIAGNOSIS: Right hip severe degenerative arthritis. PROCEDURE PERFORMED: Right total hip arthroplasty, cobalt-chrome femoral head on highly cross-linked polyethylene cup liner. FINDINGS: DESCRIPTION OF PROCEDURE: The patient was given 2 g of IV Ancef preoperatively within 60 minutes of surgery. She also received IV tranexamic acid at a dose of 1000 mg. She was placed on the operating room table and given spinal anesthesia with Marcaine by Dr. Avila. She was then placed supine an d given IV sedation. A Caicedo catheter was not used. She wore a MIGUEL stocking and SCD on the nonopera tive leg. She was rolled to the left lateral decubitus position. The position was secured with the pegboard table attachment. An axillary roll was used, and all pressure points were carefully padded. I was careful to lock her pelvis in a rigid vertical position. Her perineum was isolated with plas tic adhesive drapes. The right hip and right lower extremity were prepped with ChloraPrep. They wer e draped free using sterile sheets, stockinette, and Ioban plastic drapes. The [employer] time-out was performed to verify the correct patient identity and the c orrect surgical side and site. The [place] time-out was also performed. I made a 5-inch straight oblique posterolateral hip skin incision. The subcutaneous tissues were sha rply divided, and hemostasis was obtained using electrocautery. The fascia timur was identified and s plit along the axis of its fibers. I then curved posteriorly and proximally split the fascia of the gluteus jason and bluntly split the muscle fibers in line with their orientation. The Charnley liz f-retaining retractor was inserted. Her sciatic nerve was located, partially exposed, and protected throughout the procedures. The external rotators and the posterior hip capsule were divided as separ ate layers at the base of the femoral neck, tagged, and reflected posteriorly. A smooth 8-inch Aguila mayers pin was inserted vertically into the ilium, superior to the acetabulum. An 8-inch drill bit was inserted vertically into the greater trochanter and parallel to the first pin. The distance between the 2 was measured for leg length reference. Her femoral head was dislocated posteriorly. Severe d egenerative changes were present on her femoral head. The femoral neck was osteotomized at the appro priate level and inclination. I was careful to preserve all the posterior capsule and most of the anterior capsule. The remnant of her damaged labrum was excised. I prepared the femur first. This allowed me to resident in diagnostic radiology the amount of natural femoral neck anteversion. This, in turn, allowed me to later determine the correct amount of cup anteversion. She had approx imately 12-15 degrees of natural femoral neck anteversion. The canal was opened laterally with a box chisel. I reamed and broached sequentially up to a size 5. I used a [place] Accolade II size 5 bro ach with standard offset as a trial stem. I was careful to lateralize adequately. Appropriate retractors were inserted to expose the acetabulum. The acetabulum was reamed sequentiall y up to 53 mm. I selected a 54 mm [place] Tritanium cluster hole hemispherical shell. This was jimmy ed securely into place in the proper degree of inclination and anteversion. I used the transverse ac etabular ligament and other acetabular bony landmarks to help me properly orient the cup. I inserted two 30 mm screws into the ilium through the superior aspect of the acetabular shell. I also inserte d a screw in metal dome hole plug. Anterior superior and posterior inferior osteophytes were removed with a rongeur. I performed a series of trial reductions to determine length and stability. I concluded that the siz e 5 stem with standard offset and a 0 mm neck with a 36 mm head and a flush liner gave me the proper combination of appropriate length and good anterior and posterior stability. The 0 degree [place] X3 highly cross-linked polyethylene liner was inserted and tapped securely into place. The Amy Accolade II stem in size 5 with standard offset was inserted press-fit and was ve ry tight. I did 1 final trial reduction and confirmed that the 0 neck length with a 36 mm head was t he proper combination. The [place] cobalt-chrome head with an outside diameter of 36 mm and a neck l ength of 0 mm was tapped securely onto the clean trunnion. The acetabulum was irrigated and cleaned, and the hip was reduced 1 final time. She had excellent anterior and posterior stability and approp riate lengthening. She was 3 or 4 mm short, and I was intentionally lengthening her a small amount. 40 mL of the joint anesthetic cocktail was injected into the capsule, the deep musculature, and the s ubcutaneous tissues around the skin edges. The joint was thoroughly irrigated 1 final time with a di lute Betadine solution. Her sciatic nerve was reinspected and looked unharmed. The external rotators and the posterior hip capsule were repaired in separate layers with #2 FiberWir e sutures through drill holes in the greater trochanter. This provided a strong posterior capsular a nd external rotator repair. The fascia timur was closed first with a couple of #2 [id number] Fib erWire sutures, followed by a running #2 barbed Ethicon Stratafix PDO suture. The subcutaneous tissu es were closed with a running 0 barbed Ethicon Stratafix Monoderm suture. The skin was closed with a running 3-0 barbed Ethicon Stratafix Monoderm subcuticular suture. The skin edges were reapproximat ed and sealed with Dermabond glue. The wound was covered with a large piece of waterproof Mepilex hoover rgical dressing. The Mepilex sacral pad was also applied. A long-leg MIGUEL stocking and SCD were applied to the right lower extremity. She wore a stocking and S CD on the opposite leg during the procedure. An abduction pillow was placed between her knees. She was awakened from anesthesia and rolled to the supine position on her [facility]. She was taken to PACU in satisfactory condition. There were no recognized intraoperative complications. The estimated blood loss was about 200 mL. The sponge and needle counts were correct on 2 occasions. I used a [place] Tritanium hemispherical cluster hole acetabular shell with an outside diameter of 54 mm. The liner was a [place] X3 0-degree highly cross-linked liner with an inside diameter of 36 mm. The femoral component was a press-fit Amy standard offset Accolade II stem in size 5. The femo ral head was a [place] cobalt-chrome head with a 0 neck length and a 36 mm outside diameter. Gil Yao and Pilo Hearn acted as surgical assistants. Their assistance was a medical necess ity for safe completion of the procedure. /[id number]/MODL
--- NOTE | 2018-01-15 09:45 | PDMN ---
Medical Necessity Medical necessity: S560 hip arthroplasty A-2 days: MELISSA INPT only- R ADAM
[2018-01-15] MEDS: ENALAPRIL MALEATE 5 MG TAB PO SCH (12:07)
[2018-01-15] MEDS: guaiFENesin 600 MG TAB.ER PO SCH (12:07)
[2018-01-15] MEDS: HYDROCHLOROTHIAZIDE 25 MG TAB PO SCH (12:07)
[2018-01-15] MEDS: SERTRALINE HCL 25 MG TAB PO SCH (12:08)
[2018-01-15] MEDS: SERTRALINE HCL 100 MG TAB PO SCH (12:08)
[2018-01-15] MEDS: KETOROLAC 30 MG/1 ML SDV IVP PRN ×2 (12:26→17:46)
[2018-01-15] MEDS: ACETAMINOPHEN 325 MG TAB PO SCH ×3 (12:27→23:25)
[2018-01-15] MEDS ORDERED: CARBOXYMETHYLCELLULOSE 1% 0.4 ML DROPERETTE OP PRN (13:26)
[2018-01-15] MEDS ORDERED: LIDOCAINE 4%/MENTHOL 1% PATCH TD PRN (13:26)
[2018-01-15] MEDS: ceFAZolin 2 GM/SWFI 2 GM/20 ML SYR IVP SCH ×2 (15:08→22:55)
[2018-01-15] MEDS: traMADol 50 MG TAB PO PRN (18:06)
[2018-01-15] MEDS: SENNOSIDES/DOCUSATE SODIUM TAB PO SCH (20:05)
[2018-01-15] MEDS: ASPIRIN 325 MG TAB PO SCH (20:05)
[2018-01-15] MEDS: FAMOTIDINE 20 MG TAB PO SCH (20:06)
[2018-01-15] MEDS ORDERED: PRAVASTATIN SODIUM 10 MG TAB PO SCH (21:00)
[2018-01-15] MEDS ORDERED: ZOLPIDEM TARTRATE 5 MG TAB PO SCH (21:00)
[2018-01-16] MEDS: ACETAMINOPHEN 325 MG TAB PO SCH ×2 (05:45→11:26)
[2018-01-16] MEDS: traMADol 50 MG TAB PO PRN (06:01)
[2018-01-16 07:51] VITALS: BP 130/60
[2018-01-16] MEDS: SERTRALINE HCL 100 MG TAB PO SCH (08:40)
[2018-01-16] MEDS: ENALAPRIL MALEATE 5 MG TAB PO SCH (08:40)
[2018-01-16] MEDS: guaiFENesin 600 MG TAB.ER PO SCH (08:40)
[2018-01-16] MEDS: HYDROCHLOROTHIAZIDE 25 MG TAB PO SCH (08:40)
[2018-01-16] MEDS: ASPIRIN 325 MG TAB PO SCH (08:40)
[2018-01-16] MEDS: SENNOSIDES/DOCUSATE SODIUM TAB PO SCH (08:41)
[2018-01-16] MEDS: FAMOTIDINE 20 MG TAB PO SCH (08:41)
[2018-01-16] MEDS: SERTRALINE HCL 25 MG TAB PO SCH (08:41)
[2018-01-16] MEDS ORDERED: FERROUS SULFATE 140 MG TAB.ER PO SCH (09:00)
[2018-01-16] MEDS ORDERED: CHOLECALCIFEROL VIT D3 2,000 UNITS TAB/CAP PO SCH (09:00)
--- NOTE | 2018-01-16 09:51 | SOAPPROG ---
SOAP Progress Note Assessment/Plan: Assessment: Afebrile. Up and walking in lang. H/H is good. Sciatic nerve intact. Films look good. Dsg is dry. Plan: DC today. 01/16/18 09:49 Objective: Vital Signs Temp Pulse Resp BP Pulse Ox 36.8 C 72 16 130/60 H 96 01/16/18 07:50 01/16/18 07:50 01/16/18 07:50 01/16/18 08:40 01/16/18 07:50 Laboratory Results 01/16/18 04:34 01/16/18 04:34 01/15/18 01/16/18 01/17/18 05:59 05:59 05:59 Intake Total 2635 500 Output Total 450 Balance 2185 500 ICD10 Worksheet Patient Problems: Problems Problem Status Onset Osteoarthritis of right hip Acute PVD (peripheral vascular disease) with claudication Acute
--- NOTE | 2018-01-16 09:56 | PDIAF ---
- Diagnosis Diagnosis: R hip OA Code Status: Full Code - Medication Management Discharge Medications: Medications to Continue on Transfer Cetirizine [ZyrTEC 10 mg (*)] 10 mg PO DAILY PRN 11/20/16 [Last Taken 2 Days Ago ~01/13/18] Enalapril Maleate [Vasotec 5 MG (*)] 5 mg PO DAILY 11/20/16 [Last Taken 1 Day Ago ~01/14/18] Herbals/Supplements -Info Only 1 ea PO DAILY 11/20/16 [Last Taken 1 Week Ago ~] Hydrochlorothiazide [HCTZ (*)] 25 mg PO DAILY 11/20/16 [Last Taken 1 Day Ago ~] Multivitamins [Multivitamin (*)] 1 each PO DAILY 11/20/16 [Last Taken 1 Week Ago ~01/08/18] Zolpidem Tartrate [Ambien 5MG (*)] 5 - 10 mg PO HS 11/20/16 [Last Taken 1 Day Ago ~01/14/18] Cholecalciferol Vit D3 [Vitamin D3 (*)] 5,000 units PO DAILY 03/12/17 [Last Taken 1 Week Ago ~01/08/18] Docusate Sodium [Colace 100 MG (*)] 100 mg PO HS PRN 03/12/17 [Last Taken Unknown] Pravastatin Sodium 10 mg PO HS 03/12/17 [Last Taken 1 Day Ago ~01/14/18] Clopidogrel Bisulfate [Plavix (*)] 75 mg PO DAILY #30 tab 03/13/17 [Last Taken 1 Week Ago ~01/08/18] Sertraline HCl [Zoloft 100mg (*)] 100 mg PO DAILY 12/25/17 [Last Taken 1 Day Ago ~01/14/18] Sertraline HCl [Zoloft 25mg (*)] 25 mg PO DAILY 12/25/17 [Last Taken Unknown] guaiFENesin [Mucinex 600 MG (*)] 600 mg PO DAILY 12/25/17 [Last Taken 1 Day Ago ~01/14/18] Carboxymethylcellulose 1% [Refresh Celluvisc (*)] 1 each OP PRN PRN 01/15/18 [ Last Taken Unknown] Lidocaine 4%/Menthol 1% [Icy Hot Lidocaine/Menthol 4%/1% Patch (*)] 1 patch TD DAILY PRN 01/15/18 [Last Taken Unknown] Acetaminophen [Tylenol 325mg (*)] 650 mg PO Q6HRS tab 01/16/18 [Last Taken Unknown] Aspirin [Aspirin 325 mg (*)] 325 mg PO DAILY tab 01/16/18 [Last Taken Unknown] Cyclobenzaprine [Flexeril 10 MG (*)] 10 mg PO Q8HRS PRN #21 tab 01/16/18 [Last Taken Unknown] Ferrous Sulfate [Slow Fe 140 MG (*)] 140 mg PO DAILY tab.er 01/16/18 [Last Taken Unknown] Hydrocodone/APAP 5/325 [[place] 5/325 (*)] 1 - 2 tab PO Q4HRS PRN tab 01/16/18 [ Last Taken Unknown] Ondansetron Odt [Zofran Odt 4 mg (*)] 4 mg PO Q4HRS PRN tab 01/16/18 [Last Taken Unknown] traMADol [Ultram 50 mg (*)] 50 mg PO Q6HRS PRN tab 01/16/18 [Last Taken Unknown ] Discharge Medications: Refer to the Discharge Home Medication list for PRN reason. PICC Care - Routine: N/A - Orders Services needed: Home Care, Physical Therapy Home Care Face to Face: I certify that this patient was under my care and that I had the required rsql-ua-exwe encounter meeting the encounter requirements on the discharge day. My findings support the fact that the patient is homebound as defined in Home Care Face to Face Continued: CMS Chapter 7 Medicare Benefits Manual 30.1.1 , The condition of the patient is such that there exists a normal inability to leave home and consequently, leaving home would require a considerable and taxing effort. Diet Recommendation: no restrictions on diet Diet Texture: Regular Texture Diet Edin Stockings Discontinue Date: 1 week Wound Care Instructions: keep clean and dry. You may shower. Activity/Weight Bearing Restrictions: as tolerated. Additional Instructions: NO Celebrex at home. - Follow Up Care Current Providers and Referrals: Colette Hoffman MD [Primary Care Provider] - Jason Birmingham MD [Medical Doctor] - 02/04/18
--- NOTE | 2018-01-16 10:09 | GDS ---
[f rep st] DISCHARGE SUMMARY ADMISSION DIAGNOSIS: Right hip severe degenerative arthritis. DISCHARGE DIAGNOSIS: Right hip severe degenerative arthritis OPERATION PERFORMED: 01/15/2018, right total hip arthroplasty. POSTOPERATIVE COMPLICATIONS: None. CONDITION ON DISCHARGE: Improved. DESCRIPTION OF HOSPITAL COURSE: The patient was admitted to the hospital on the morning of surgery. Her admission CBC and electrolytes were normal. BUN 37, creatinine 0.7. The same day, under a comb ination of Marcaine, spinal, and IV sedation, she underwent a right total hip arthroplasty. Postoper atively, she was treated with multimodal DVT prophylaxis, including aspirin. On the first postoperat clark day, her hemoglobin and hematocrit were 10.2 and 31.0. Her BUN and creatinine were 24 and 0.7. She was seen by Physical Therapy and made excellent progress with ambulation and stairs. By the time of discharge, she was afebrile, her dressing was dry, and she was independent walking with a walker. DISPOSITION: The patient discharged to her home. She will have home physical therapy. She may prog ress to full weightbearing on the right as tolerated. Use an abduction pillow in bed for 3 weeks. U se MIGUEL stockings for 1 week. She will not use Celebrex because she is on Plavix. She will continue aspirin 325 mg p.o. daily for 21 days. She will have home physical therapy. I will see her back in the office on 02/04/2018. If any problems, she is to call me at the office. /[id number]/MODL
--- NOTE | 2018-01-16 11:41 | ASMTLACE ---
CATHY Length of stay for Answers: 1 day current admission Acuity / Level of Answers: Yes Care: Did the patient have an inpatient admission? Comorbidities - select Answers: Congestive heart failure all that apply Coronary Artery Disease Opioid dependence / Chronic pain # of Emergency department Answers: 1-2 visits in the last 6 months Score: 13 Date Signed: 01/16/2018 11:41 AM Electronically Signed By:PEPE Melchor
--- NOTE | 2018-01-16 11:44 | ASMTCMCOM ---
CM Note CM Note Notes: Pt s/p OA of hip, lives alone. PT rec HHC/home. Pt agreeable to [facility], address/phone verified. Orders to be obtained via [employer]. Pt medically stable for d/c with [facility]. Date Signed: 01/16/2018 11:43 AM Electronically Signed By:PEPE Melchor
--- NOTE | 2018-01-16 15:49 | ASDISCHSUM ---
Discharge Information Plan Status:Home with Home Health Medically Cleared to Leave: Discharge Date:01/16/2018 12:32 PM CM D/C Disposition:Home Health Service ADT D/C Disposition:Home Health Service Projected Discharge Date:01/16/2018 11:00 AM Transportation at D/C: Discharge Delay Reason: Follow-Up Date:01/16/2018 11:00 AM Discharge Slot: Final Diagnosis: Placement Information Referral Type:*Home Health Care Services Referral ID:[facility]-[id number] Provider Name:[facility] Address 1:[address] [place] [address] Address 2: City:[place] Selection Factors: State:[place] Patient Contact Information Contact Name:VIRIDIANA Relationship:Friend Address: Work Phone: City: [facility] Phone: [facility] Code: Email: Financial Information Financial Class:Medicare Advantage Plans Primary Plan Desc:[facility] [employer] Primary Plan Number:[id number] Secondary Plan Desc: Secondary Plan Number: Assessment Information LACE LACE Length of stay for Answers: 1 day current admission Acuity / Level of Answers: Yes Care: Did the patient have an inpatient admission? Comorbidities - select Answers: Congestive heart failure all that apply Coronary Artery Disease Opioid dependence / Chronic pain # of Emergency department Answers: 1-2 visits in the last 6 months Score: 13 Date Signed: 01/16/2018 11:41 AM Electronically Signed By:PEPE Melchor [facility] CM Progress Note CM Note CM Note Notes: Pt s/p OA of hip, lives alone. PT rec HHC/home. Pt agreeable to [facility], address/phone verified. Orders to be obtained via [employer]. Pt medically stable for d/c with [facility]. Date Signed: 01/16/2018 11:43 AM Electronically Signed By:PEPE Melchor Intervention Information
== END 2018-01-16 12:32 | disposition home health service (06) | DRG 470 ==
LOC: F3N 05:49
PROVIDERS: ADMIT Orthopaedic Surgery; ATTEND Orthopaedic Surgery
PROC: 0SR902Z Replacement of Right Hip Joint with Metal on Polyethylene Synthetic Substitute, Open Approach (ICD-10-PCS; principal; 2018-01-15 07:15)
DX: M16.11 Unilateral primary osteoarthritis, right hip (principal); I10 Essential (primary) hypertension; E78.00 Pure hypercholesterolemia, unspecified; I73.9 Peripheral vascular disease, unspecified
CPT/HCPCS: 97110-GP; 97116-GP; 97161-GP; 97166-GO; 97530-GP; C1713; G8978-GP-CJ; G8979-GP-CI; G8980-GP-CI; G8987-GO-CJ; G8988-GO-CI; G8989-GO-CJ; J0171; J0690; J1100; J1885; J2704

== ENCOUNTER 2018-09-30 10:17 | Inpatient (IN) | payer OTHER ==
--- NOTE | 2018-09-29 12:18 | GHP ---
DATE OF ADMISSION: 09/30/2018 HISTORY: The patient is a 78-year-old female who has severe right shoulder glenohumeral osteoarthrit is. This causes her pain, crepitus, and limitation of motion and function of her shoulder. This als o contributes to neck problems. She has used appropriate medications, has done appropriate exercises and therapies to maintain the function of her shoulder. Her x-rays show a zfyv-cg-bkbo glenohumeral joint. MRI shows some cuff tendinosis without full-thickness tear, and severe blvo-wt-tpws osteoart hritis. There is humeral head flattening, inferior osteophytes, subchondral sclerosis. A right tota l shoulder arthroplasty is planned. PAST MEDICAL HISTORY: Remarkable for peripheral vascular disease. She has never been a smoker. She has had a right total hip arthroplasty that has done well. She has a history of arthritis, elevated cholesterol, heart disease, osteoporosis, peripheral vascular disease. ALLERGIES: Benadryl. MEDICATIONS: Currently include; pravastatin 10 mg p.o. daily, clopidogrel 75 mg p.o. daily, Zyrtec, multivitamin, hydrochlorothiazide 25 mg p.o. daily, Aleve, baby aspirin 81 mg p.o. daily, Tylenol on a p.r.n. basis, zolpidem 10 mg p.o. at bedtime on a p.r.n. basis, and Mucinex p.r.n. REVIEW OF SYSTEMS: Positive for her peripheral vascular disease for which she is anticoagulated. PHYSICAL EXAM: GENERAL: Well-developed, well-nourished female in no apparent distress. HEAD AND NE CK: Normocephalic, atraumatic. CHEST: Clear. CARDIOVASCULAR: Regular rate and rhythm. ABDOMEN: Soft. NEUROLOGIC: Alert and oriented x3. MUSCULOSELETAL: Exam of the right shoulder shows limita tion of motion, she has about 40 degrees of external rotation, and with rotation she has considerable appj-qp-cldo crepitus. She has passively about 100 degrees of forward flexion. X-rays have been reviewed above showing significant glenohumeral osteoarthritis. IMPRESSION: Right shoulder severe glenohumeral osteoarthritis. PLAN: Right total shoulder arthroplasty. Benefits and risks of surgery have been reviewed with harika ent. She understands that the risks include infection, damage to blood vessel or nerve, failure or l oosening of components and need for revision, or instability of the joint. The rigorous nature of e rehabilitation has been reviewed. She has cardiac clearance and she will stop her Plavix and aspir in at least 5 days before surgery. She has signed a consent form and wishes to proceed. /[id number]/MODL
[~2018-09-30 10:17] MED LIST changes: +BACITRACIN 50,000 UNITS/10 ML SYR IRR ONE; +BUPIVACAINE/EPI 0.5% 30 ML SDV ONE; -GADOBUTROL 10 ML VIAL IVP ONE; +POLYMYXIN B SULFATE 500,000 UNIT/10 ML SYR IRR ONE; +ROPIVACAINE 0.2% 80 MG, EPINEPHrine 0.2 MG, KETOROLAC TROMETHAMINE 30 MG in SYRINGE 0 ML IU ONE; +TRANEXAMIC ACID 1,000 MG in NS 100 ML IV ONE
[2018-09-30] MEDS ORDERED: PREGABALIN 150 MG CAP PO ONE (10:37)
[2018-09-30] MEDS ORDERED: LR 1,000 ML IV SCH ×2 (10:37→15:30)
[2018-09-30] MEDS ORDERED: ACETAMINOPHEN 500 MG TAB PO ONE (10:37)
[2018-09-30] MEDS ORDERED: ceFAZolin 2 GM/DEXTROSE 100 ML IV ONE (10:37)
[2018-09-30] MEDS ORDERED: LR 1,000 ML IV ONE (10:38)
[2018-09-30] MEDS ORDERED: LIDOCAINE 1% 2 ML INJ ID PRN (10:38)
[2018-09-30] MEDS ORDERED: ROPIVACAINE HCL 150 MG/30 ML INJ ONE (11:40)
[2018-09-30] MEDS ORDERED: fentaNYL 100 MCG/2 ML INJ ONE ×2 (11:40→15:05)
[2018-09-30] MEDS ORDERED: ONDANSETRON 4 MG/2 ML VIAL ONE (11:40)
[2018-09-30] MEDS ORDERED: PROPOFOL 200 MG/20 ML VIAL ONE (11:40)
[2018-09-30] MEDS ORDERED: LIDOCAINE 2% 5 ML SDV ONE (11:40)
--- NOTE | 2018-09-30 12:23 | PDANEPAE ---
ANE History of Present Illness R shoulder pain, here for R total shoulder ANE Past Medical History - Cardiovascular History Hx Hypertension: Yes Hx Arrhythmias: No Hx Chest Pain: No Hx Coronary Artery / Peripheral Vascular Disease: Yes Hx CHF / Valvular Disease: Yes Hx Palpitations: No Cardiovascular History Comment: PVD, PAD, Aortic insufficiency - Pulmonary History Hx COPD: No Hx Asthma/Reactive Airway Disease: No Hx Recent Upper Respiratory Infection: No Hx Oxygen in Use at Home: No Hx Sleep Apnea: No Sleep Apnea Screening Result - Last Documented: Positive Pulmonary History Comment: cough r/t sinus drainage - Neurologic History Hx Cerebrovascular Accident: No Hx Seizures: No Hx Dementia: No - Endocrine History Hx Diabetes: No - Renal History Hx Renal Disorders: No - Liver History Hx Hepatic Disorders: No - Neurological & Psychiatric Hx Hx Neurological and Psychiatric Disorders: Yes Neurological / Psychiatric History Comment: anxiety,depression. 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 bruises easily - Chronic Pain History Chronic Pain: Yes (bilat shoulders,neck,lower back) - Surgical History Prior Surgeries: R total hip. Hysterectomy. tonsillectomy. appendectomy? left leg angioplasty ANE Review of Systems Review of Systems: - Exercise capacity METS (RN): 3 METS ANE Patient History - Allergies Allergies/Adverse Reactions: diphenhydramine HCl [From Benadryl] Allergy (Verified 09/19/18 15:57) Other-Enter Comments oxycodone Allergy (Verified 09/19/18 15:57) Other-Enter Comments - Home Medications Home Medications: Cetirizine [ZyrTEC 10 mg (*)] 10 mg PO DAILY PRN 11/20/16 [Last Taken 2 Weeks Ago ~09/16/18] Herbals/Supplements -Info Only 1 ea PO DAILY 11/20/16 [Last Taken 1 Week Ago ~] Hydrochlorothiazide [HCTZ (*)] 25 mg PO DAILY 11/20/16 [Last Taken 09/29/18] Multivitamins [Multivitamin (*)] 1 each PO DAILY 11/20/16 [Last Taken 1 Week Ago ~09/23/18] Zolpidem Tartrate [Ambien 5MG (*)] 5 - 10 mg PO HS 11/20/16 [Last Taken 09/29/18 ] Cholecalciferol Vit D3 [Vitamin D3 (*)] 5,000 units PO DAILY 03/12/17 [Last Taken 1 Week Ago ~09/23/18] Docusate Sodium [Colace 100 MG (*)] 100 mg PO HS 03/12/17 [Last Taken 09/29/18] Pravastatin Sodium 10 mg PO HS 03/12/17 [Last Taken 09/29/18] Sertraline HCl [Zoloft 25mg (*)] 75 mg PO DAILY 12/25/17 [Last Taken 09/29/18] guaiFENesin [Mucinex 600 MG (*)] 600 mg PO DAILY PRN 12/25/17 [Last Taken 2 Weeks Ago ~09/16/18] Carboxymethylcellulose 1% [Refresh Celluvisc (*)] 1 each OP PRN PRN 01/15/18 [ Last Taken 2 Days Ago ~09/28/18] Acetaminophen [Tylenol 325mg (*)] 650 mg PO Q6HRS PRN 09/12/18 [Last Taken 09/29] Lidocaine 5% [Lidoderm 5% Patch] 1 ea TD DAILY PRN 09/12/18 [Last Taken 2 Days Ago ~09/28/18] Naproxen Sodium [Aleve 220 MG (*)] 220 mg PO BID PRN 09/12/18 [Last Taken 1 Week Ago ~09/23/18] Aspirin 81mg (*) 09/30/18 [Last Taken 1 Week Ago ~09/23/18] - NPO status NPO Since - Liquids (Date): 09/29/18 NPO Since - Liquids (Time): 22:00 NPO Since - Solids (Date): 09/29/18 NPO Since - Solids (Time): 20:00 - Smoking Hx Smoking Status: Never smoked - Family Anes Hx Family Hx Anesthesia Complications: none ANE Labs/Vital Signs - Vital Signs Blood Pressure: 166/70 Heart Rate: 69 Respiratory Rate: 14 O2 Sat (%): 92 Height: 165.1 cm Weight: 55.338 kg ANE Physical Exam - Airway Neck exam: FROM Mallampati Score: Class 2 Mouth exam: normal dental/mouth exam - Pulmonary Pulmonary: no respiratory distress, no rales or rhonchi - Cardiovascular Cardiovascular: regular rate and rhythym, no murmur, rub, or gallop - ASA Status ASA Status: II ANE Anesthesia Plan Anesthesia Plan: GA w LMA Regional Anesthesia: single shot NB Total IV Anesthesia: No
--- NOTE | 2018-09-30 12:28 | PDHPUP ---
History & Physical Update H&P update statement: This history and physical update is based on an assessment of the patient which was completed after admission or registration (within 24 hours), but prior to the surgery/procedure. No change H&P update: no change in patient's condition since H&P completed (no change)
[2018-09-30] MEDS ORDERED: HYDROmorphONE/DILAUDID 2 MG/ML INJ IVP PRN (14:40)
[2018-09-30] MEDS ORDERED: ALBUTEROL 3 ML DEYVIAL IH PRN (14:40)
[2018-09-30] MEDS ORDERED: HYDROCODONE/APAP 5/325 TAB PO PRN (14:40)
[2018-09-30] MEDS ORDERED: ONDANSETRON 4 MG/2 ML VIAL IVP PRN (14:40)
[2018-09-30] MEDS ORDERED: PROMETHAZINE HCL 25 MG/ML INJ IVP PRN (14:40)
[2018-09-30] MEDS ORDERED: NALOXONE HCL 0.4 MG/ML INJ IVP PRN (14:40)
[2018-09-30] MEDS ORDERED: MEPERIDINE 25 MG/0.5 ML AMP IVP PRN (14:40)
[2018-09-30] MEDS ORDERED: ACETAMINOPHEN 325 MG TAB PO PRN (15:03)
[2018-09-30] MEDS ORDERED: ALBUTEROL 3 ML DEYVIAL ONE (15:05)
--- NOTE | 2018-09-30 15:05 | POSTANESTH ---
Post Anesthetic Evaluation Cardiovascular Status: Normal, Stable Respiratory Status: Normal, Stable, Other, See Comment Level of Consciousness/Mental Status: Can Participate in Eval, Alert and Oriented Pain Control: Adequate, Prn Tx Ordered Nausea/Vomiting Control: Adequate, Prn Tx Ordered Complications Possibly Related to Anesthesia: None Noted (Coughing after LMA out , clear secretions suctioned. Treated with neb, althugh no wheezing ascultated, and narcotic to calm cough reflex. Recovered well. VS stable)
[2018-09-30] MEDS: fentaNYL 100 MCG/2 ML INJ IVP PRN ×2 (15:06→15:13)
[2018-09-30] MEDS ORDERED: CARBOXYMETHYLCELLULOSE 1% 0.4 ML DROPERETTE OP PRN (15:10)
[2018-09-30] MEDS ORDERED: CETIRIZINE 10 MG TAB PO PRN (15:10)
[2018-09-30] MEDS ORDERED: guaiFENesin 600 MG TAB.ER PO PRN (15:10)
[2018-09-30] MEDS ORDERED: LIDOCAINE 5% TD PRN (15:10)
--- NOTE | 2018-09-30 15:22 | PDMN ---
Medical Necessity Medical necessity: [facility] [place] S634 [place] arthroplasty 1 day INPT only OP: R TSA AUTH # [id number] FOR CPT 14466, EXPECTED DATE OF ADMISSION WAS HOWEVER AUTH WAS NEVER USED AND STILL GOOD FOR MOST RECENT DATES JUST NEED TO NOTIFY UPON ADMISSION TO HAVE AUTH DATES UPDATED PER [place] [facility] REP. DONE IN PT.
--- NOTE | 2018-09-30 16:54 | GOP ---
DATE OF OPERATION: SURGEON: Lincoln Coughlin MD MARKETING AGENT: CONNER Meza, LSA ANESTHESIOLOGIST: Loulou Puentes DO PREOPERATIVE DIAGNOSIS: Right shoulder glenohumeral osteoarthritis. POSTOPERATIVE DIAGNOSIS: Right shoulder glenohumeral osteoarthritis. PROCEDURE PERFORMED: Right total shoulder arthroplasty. FINDINGS: SPECIMENS: Include excised bone. ESTIMATED BLOOD LOSS: About 40 cc. INDICATIONS: The patient is a 78-year-old female who has swcj-tm-cdat severe and chronic right shoul jonathan glenohumeral osteoarthritis. She has pain, crepitus, limitation of motion and function. She has tried appropriate conservative measures and the shoulder is chronically painful and functionally imp aired, so she has elected to undergo a total shoulder arthroplasty. DESCRIPTION OF PROCEDURE: The patient was taken the operating room, and while supine on the operatin g table Dr. Puentes provided an ultrasound-guided scalene block. She received preoperative antibiotic and tranexamic acid. She was carefully placed in a semi-beach chair position with her head supported carefully in a neutral position in a Smith evp head of smg [employer] experience strategy. I moved her body to the right side of th e table so I could extend the shoulder. The right shoulder and arm were prepped and draped free with chlorhexidine in the usual fashion. I used an anterior approach to the shoulder and a deltopectoral approach. I made an incision startin g at the coracoid process to a point in the anterior midline of the upper arm. Dissection was keisha d down through subcutaneous tissue. I identified the cephalic vein, which was preserved and moved it laterally with the deltoid and dissected bluntly onto the humeral head. Appropriate retractors were placed to visualize the humeral head. I found the biceps tendon as it was exiting the bicipital aiyana ove. I opened the bicipital sheath and I tenodesed the biceps into the surrounding soft tissues and the sheath surrounding the tendon. I then divided the tendon above the tenodesis site and later trim med the stump of this in the joint. I opened the joint through a vertical incision made full thickness through capsule and subscapularis tendon and carried this incision into the rotator interval. I tagged the edge of the subscapularis a nd I dissected the scarred and inflamed capsule from its undersurface and made sure this was a mobile tendon unit. I palpated the axillary nerve going under the joint and used Metzenbaum scissors to di vide the inferior capsule while protecting the nerve. The head was then brought up out of the wound so that I could make a neck cut. I used the neck cutting guide. Because the glenoid was worn in katja te a bit of retroversion, I did not go too aggressively on the retroversion of the head. I made a ne ck cut in about 15 degrees of retroversion and removed osteophytes. I used an awl to gain access to the canal and gently reamed up to 12 mm where I began to get some purchase in the canal. The 12 stem was a good fit. I then exposed the glenoid with appropriate glenoid rim retractors. I sized the gl enoid at a 40 and this was based on visualizing the surface and preoperative planning. I drilled the central pin, reamed the surface smooth, did a central drill hole, and then, the peripheral cement ho les. The trial was a good fit. This was removed. The surfaces were dried and a size 40 Premeron glenoid component with a central bony ingrowth PEG was applied, the central PEG with no cement with the 3 small surrounding pegs a small quantity of methyl methacrylate to stabilize it. This was a good fit and it was nice and stable after being press-fit i nto place. The bone in the metaphyseal area was very soft. It did not generate good rotational stab ility of the stem. I chose a 12 [employer] shoulder stem with porous coating on the upper third or so. I placed a small ring of methylmethacrylate cement to help as a filler and stabilize it, and it was placed in the canal and tapped into place. I did prior to this place 4 sutures of #2 FiberWire through the anterior glenoid neck. Once the cement had hardened for both the glenoid and the stem, I did trial reductions. I found that a size 44 head, eccentric, 18 mm thick, really nicely restored t he shape of the proximal humerus, covered the neck area, and was in appropriate position relative to the rotator cuff. The final component 44 x 18 eccentric was placed with the bulk of the head superio rly. The shoulder was reduced. It had nice stability and I could easily repair the subscapularis, w hich was performed by mattressing the previously placed FiberWire and this covered the anterior humer al head and restored the anterior aspect of the rotator cuff. An additional fwncok-sk-cywjk FiberWir e was placed to close the rotator interval. The shoulder had about 30 degrees of external rotation a nd was stable in the joint. Copious antibiotic irrigation was used throughout this case. I closed the subcutaneous tissue with 2-0 and 3-0 Monocryl, and the skin was closed with a quilled hoover bcuticular locking suture. I used tissue glue, Telfa, and 2 small Tegaderms over this and the patien t was placed in a sling. COMPLICATIONS: There were no complications. DRAINS: No drain. COUNTS: All counts were correct and the patient was taken in stable condition to recovery. My teachers' assistant was a medical necessity for this procedure. SUMMARY OF COMPONENTS: This is a [employer] shoulder. The stem is 12 press-fit with a small ring of methylmethacrylate. The head is a 44 x 18 eccentric head. The glenoid is a Premeron crosslinked polyethylene all poly component with a central bony ingrowth PEG size 40. /[id number]/MODL
[2018-09-30] MEDS: KETOROLAC 15 MG/1 ML SDV IVP SCH ×2 (18:14→23:14)
[2018-09-30] MEDS: DOCUSATE SODIUM 100 MG CAP PO SCH (20:58)
[2018-09-30] MEDS ORDERED: DOCUSATE SODIUM 100 MG CAP PO SCH (21:00)
[2018-09-30] MEDS ORDERED: PRAVASTATIN SODIUM 10 MG TAB PO SCH (21:00)
[2018-09-30] MEDS: HYDROCODONE/APAP 5/325 TAB PO PRN (21:01)
[2018-09-30] MEDS: ceFAZolin 2 GM/DEXTROSE 100 ML IV SCH (21:01)
[2018-10-01] MEDS: KETOROLAC 15 MG/1 ML SDV IVP SCH (05:14)
[2018-10-01] MEDS: ceFAZolin 2 GM/DEXTROSE 100 ML IV SCH (05:14)
[2018-10-01] MEDS: HYDROCODONE/APAP 5/325 TAB PO PRN ×2 (08:21→12:13)
[2018-10-01] MEDS: DOCUSATE SODIUM 100 MG CAP PO SCH (08:21)
[2018-10-01 08:34] VITALS: BP 129/57
--- NOTE | 2018-10-01 08:38 | SOAPPROG ---
SOJEAN-PIERRE Progress Note Assessment/Plan: Assessment: 10/01/18 POD#1 R TSA, pain controlled, xray fine Plan: 10/01/18 08:35 PT/OT, then home, elo benton, out patient PT- has set up, mat restart plavix tomorrow kriss Objective: Vital Signs Temp Pulse Resp BP Pulse Ox 36.4 C 62 16 129/57 H 98 10/01/18 04:51 10/01/18 04:51 10/01/18 04:51 10/01/18 08:21 10/01/18 04:51 09/30/18 10/01/18 10/02/18 05:59 05:59 05:59 Intake Total 1100 Output Total 40 Balance 1060 ICD10 Worksheet Patient Problems: Problems Problem Status Onset Osteoarthritis of right hip Acute PVD (peripheral vascular disease) with claudication Acute
[2018-10-01] MEDS ORDERED: MULTIVITAMINS 1 EACH TAB PO SCH (09:00)
[2018-10-01] MEDS ORDERED: ASPIRIN 81 MG CHEWABLE TAB PO SCH (09:00)
[2018-10-01] MEDS ORDERED: CHOLECALCIFEROL VIT D3 1,000 UNITS TAB PO SCH (09:00)
[2018-10-01] MEDS ORDERED: HYDROCHLOROTHIAZIDE 25 MG TAB PO SCH (09:00)
[2018-10-01] MEDS ORDERED: SERTRALINE HCL 25 MG TAB PO SCH (09:00)
--- NOTE | 2018-10-01 12:28 | ASMTCMCOM ---
CM Note CM Note Notes: Pt had planned OA of R shoulder. PT and MD rec outpatient PT. Pt medically stable for d/c, no CM d/c needs identified. Date Signed: 10/01/2018 12:28 PM Electronically Signed By:PEPE Melchor
[2018-10-02] MEDS ORDERED: CLOPIDOGREL BISULFATE 75 MG TAB PO SCH (09:00)
== END 2018-10-01 12:21 | disposition home or self-care (01) | DRG 483 ==
LOC: F3N 10:17
PROVIDERS: ADMIT Orthopaedic Surgery; ATTEND Orthopaedic Surgery
PROC: 0LM10ZZ Reattachment of Right Shoulder Tendon, Open Approach (ICD-10-PCS; principal; 2018-09-30 12:30)
PROC: 0RRJ0JZ Replacement of Right Shoulder Joint with Synthetic Substitute, Open Approach (ICD-10-PCS; principal; 2018-09-30 12:30)
DX: M19.011 Primary osteoarthritis, right shoulder (principal); I70.209 Unspecified atherosclerosis of native arteries of extremities, unspecified extremity; Z79.02 Long term (current) use of antithrombotics/antiplatelets; Z79.82 Long term (current) use of aspirin; I35.1 Nonrheumatic aortic (valve) insufficiency; E78.00 Pure hypercholesterolemia, unspecified; I10 Essential (primary) hypertension; F32.9 Major depressive disorder, single episode, unspecified; F41.9 Anxiety disorder, unspecified; M81.0 Age-related osteoporosis without current pathological fracture; Z96.641 Presence of right artificial hip joint; Z85.828 Personal history of other malignant neoplasm of skin
CPT/HCPCS: 97110-GP; 97161-GP; 97165-GO; 97535-GO; C1713; G8978-GP-CI; G8979-GP-CI; G8980-GP-CI; J0171; J0690; J1885; J2405; J2704; J2795; J3010; J7613

== ENCOUNTER → 2019-02-20 | Outpatient (CLI) | payer OTHER | LOC: FIMAGING 09:09 ==